=== PATIENT | male | born 1940 | race Caucasian/White ===

== ENCOUNTER 2016-08-19 18:51 | Inpatient (IN) | payer MEDICARE, OTHER ==
--- NOTE | ~2016-08-19 | CN ---
Consultation Report [facility] [address] [place]. [address] NAME: PETER MENDOZA : 38 STATUS : ADM IN PAT#: [id number] AGE: 76 ADM/REG DATE : 08/19/16 MR#: [id number] REPORT SERV DATE: 08/20/16 DICTATED BY: ION LYN DATE: 08/20/16 REPORT STATUS : Draft TRANSCRIBED BY: MODEdith DATE: 08/20/16 CARDIOLOGY CONSULTATION DATE OF CONSULTATION: INDICATION: Acute on chronic heart failure exacerbation, chest discomfort, fatigue. HISTORY OF PRESENT ILLNESS: The patient is a 76-year-old white male, well known to me, whom I had seen two weeks ago. At that time, he was seeing gradual improvement with almost complete elimination of his lower extremity edema. He had been walking more and was able to go to grandchild's wedding. His OptiVol levels were normal on a prior interrogation. His states he has had progressive decline in energy. He has noted some chest discomfort, which he feels like a tightness. He also has had difficulty swallowing his food. The also notes a softening of his voice as he talks for any length of time, raising the possibility of some type of process involving the thoracic neuro musculature. CURRENT HOME MEDICATIONS: Apixaban 2.5 b.i.d., carvedilol 12.5 b.i.d., cholecalciferol 1000 per day, duloxetine 30 a day, ezetimibe 10 per day, gabapentin 200 b.i.d., hydralazine 25 b.i.d., insulin glargine as directed, metolazone 5 twice a week, mexiletine 150 q.8, nystatin powder b.i.d., potassium 10 daily, pravastatin 40 at h.s., probenecid 500 b.i.d., ranolazine 500 b.i.d., sotalol 120 in the morning and 60 in the evening, tamsulosin 0.4 per day, torsemide 40 b.i.d., and tramadol p.r.n. ALLERGIES OR INTOLERANCES: Lisinopril, amiodarone, valsartan, levofloxacin, and Entresto. 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 Negative for alcohol or tobacco use. FAMILY HISTORY: Negative for coronary artery disease at young age. 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 Robledo's arteriogram. His last echo on 11/05/2015 showed an EF of 25%. He has dyslipidemia and chronic lower extremity edema. He has a [employer]-D system in place. History of diabetes mellitus and chronic kidney disease stage 3. He has had recurrent GI bleeds, sleep apnea, and some dyspnea multifactorial. His device interrogation shows recent trending upward of his OptiVol, although not yet at a level of significance. He has had occasional short episodes of nonsustained ventricular tachycardia, although on 08/10 he had an event lasting 1 minute and 15 seconds, occurring at 1753 hours. PHYSICAL EXAMINATION: GENERAL: A 76-year-old white male, appears moderately frail. VITAL SIGNS: Blood pressure 116/67, pulse 73 and regular, respirations 20. Consultation Report [address] [place]. [address] NAME: PETER MENDOZA : 38 STATUS : ADM IN [facility]#: [id number] AGE: 76 ADM/REG DATE : 08/19/16 MR#: [id number] REPORT SERV DATE: 08/20/16 DICTATED BY: ION LYN DATE: 08/20/16 REPORT STATUS : Draft TRANSCRIBED BY: LOUIE DATE: 08/20/16 SKIN: No xanthelasmas. HEENT: He is normocephalic. There is no pallor. NECK: JVD is not elevated. CHEST: No crackles. Good AP movement. CARDIAC: There is an S4. There is no S3. ABDOMEN: Soft. EXTREMITIES: With trace edema. NEUROLOGIC: No focal deficits. MUSCULOSKELETAL: No kyphosis. LABORATORY DATA: BUN 85, creatinine 2.04, potassium 3.3. Hemoglobin 11.7. BNP 1252. ECG shows a paced AV rhythm. IMPRESSION: Symptoms partly due to exacerbation of systolic heart failure, although this does not account for the degree of symptomatology. His OptiVol levels while trending upward are not nearly what I was expecting them to be based on symptoms. He has had an increase in his BUN and creatinine, which may result in decreased B natriuretic peptide clearance, although the levels today are not out of line with that, which he has had in the past. Dr. Robledo will evaluate him for his underlying chest discomfort. He did have a speech pathology study, which suggested a GI consult. Echocardiogram is pending. There also was a recommendation for possible Neurology consult. At this point, I am not going to change his ICD settings. He is on appropriate therapy, otherwise. We will decrease his sotalol due to the decline in baseline renal function. DW/MODL Ion Lyn M.D. / [id number] CC: MD Socorro Coombs M.D. [facility] [place]
--- NOTE | ~2016-08-19 | CN ---
Consultation Report [facility] [address] [place]. [address] NAME: PETER MENDOZA : 38 STATUS : ADM IN PAT#: [id number] AGE: 76 ADM/REG DATE : 08/19/16 MR#: [id number] REPORT SERV DATE: 08/22/16 DICTATED BY: MATA VILLAFANA DATE: 08/22/16 REPORT STATUS : Draft TRANSCRIBED BY: MODL DATE: 08/22/16 CONSULTATION DATE OF CONSULTATION: HISTORY OF PRESENT ILLNESS: Peter Mendoza is a 76-year-old gentleman who has a history of coronary artery disease, congestive heart failure, AICD, and also type 2 diabetes. He is admitted with chest pain and shortness of breath. He has had a month or two of dysphagia. It sticks in his upper chest and sometimes goes down. He sometimes regurgitates it back. He is on Eliquis. His states he has had a lot of belching. MEDICATIONS: His medications at home and here include Eliquis, Coreg, Cymbalta, potassium tablets, and pravastatin. PHYSICAL EXAMINATION: VITAL SIGNS: Blood pressure 105/42. GENERAL: Mildly dyspneic, appears debilitated. NECK: Has a large neck. ABDOMEN: Soft, nontender. LABORATORY DATA: Hemoglobin 11.7. IMPRESSION: Dysphagia. Certainly concerning for esophageal stricture. Apparently, Speech Therapy did not see any oropharyngeal problems. Could consider esophageal dilatation, but certainly at increased risk. Also on Eliquis. PLAN: 1. I agree with Protonix. 2. We will do esophagram and tablet looking for any high-grade stricture. 3. Would of course need to hold the anticoagulation and need cardiac clearance before we could do any endoscopic evaluation and treatment. MG/MODEdith Mata Villafana M.D. / [id number] CC: Gilbert Chandra M.D.
--- NOTE | ~2016-08-19 | CN ---
Consultation Report [facility] [address] [place]. [address] NAME: PETER MENDOZA : 38 STATUS : ADM IN [facility]#: [id number] AGE: 76 ADM/REG DATE : 08/19/16 MR#: [id number] REPORT SERV DATE: 08/20/16 DICTATED BY: KANG ROBLEDO DATE: 08/20/16 REPORT STATUS : Draft TRANSCRIBED BY: LOUIE DATE: 08/20/16 CARDIOLOGY CONSULTATION DATE OF CONSULTATION: HISTORY OF PRESENT ILLNESS: The patient is a 76-year-old white male, who is status post remote bypass surgery and subsequent stenting. The patient presented to the hospital with some oppressive substernal chest discomfort of about 2 hours duration. He has been having progressive shortness of breath over the past few weeks. Cardiac enzymes are negative and EKG shows a paced rhythm. PAST MEDICAL HISTORY: Remarkable for coronary artery disease, ablation, hypertension, diabetes, hyperlipidemia, and paroxysmal atrial fibrillation. SOCIAL HISTORY: The patient does not smoke. FAMILY HISTORY: Positive for coronary artery disease. REVIEW OF SYSTEMS: The patient denies cough, wheeze, sputum production, vomiting, diarrhea, or dysuria. PHYSICAL EXAMINATION: VITAL SIGNS: Blood pressure is 116/67, heart rate is 63 and regular, respirations 16 and nonlabored. HEENT: Unremarkable. NECK: Shows no jugular venous distention with good carotid upstroke. CHEST: Remarkable for basilar rales. CARDIOVASCULAR: The PMI is lateral to the mid clavicular line. S1 is normal, S2 is narrowly split and S3 is present. ABDOMEN: Soft, nontender with normal bowel sounds. EXTREMITIES: Show no cyanosis, clubbing, or edema. SKIN: Warm and dry with no pallor or icterus. NEURO/PSYCH: The patient is oriented x3 with appropriate affect. LABORATORY DATA: BUN is 90, creatinine is 1.92. Potassium 3.1 (being replaced). Troponin is 0.04. BNP is 1252. IMPRESSION: 1. Acute on chronic systolic congestive heart failure. 2. History of coronary artery disease with previous bypass surgery and subsequent stenting. 3. Hypertension. 4. Hyperlipidemia. 5. Gbo-oidzysi-cvmbwpjwx diabetes. Consultation Report [facility] [address] [place]. [address] NAME: PETER MENDOZA : 38 STATUS : ADM IN PAT#: [id number] AGE: 76 ADM/REG DATE : 08/19/16 MR#: [id number] REPORT SERV DATE: 08/20/16 DICTATED BY: KANG ROBLEDO DATE: 08/20/16 REPORT STATUS : Draft TRANSCRIBED BY: LOUIE DATE: 08/20/16 PLAN: 1. Continue empiric diuretic therapy for congestive heart failure. 2. Check echocardiogram to re-evaluate LV dysfunction. 3. We would be hesitant to take this patient with chronic renal disease back to the cardiac catheterization laboratory. Thank you very much for this consultation. JEWELS/LOUIE Kang Robledo M.D., F.A.C.C. / [id number] CC: MD Socorro Coombs M.D.
--- NOTE | ~2016-08-19 | DS ---
Discharge Summary [facility] [address] [place]. [address] NAME: PETER MENDOZA : 38 STATUS : DIS IN PAT#: [id number] AGE: 76 ADM/REG DATE : 08/19/16 MR#: [id number] REPORT SERV DATE: 08/25/16 DICTATED BY: DATE: REPORT STATUS : Draft TRANSCRIBED BY: MODL DATE: 08/24/16 ADMISSION DATE: 08/19/2016 DISCHARGE DATE: 08/24/2016 The patient was admitted to the [facility]. ATTENDING DOCTORS: Margarito Rivera M.D. CONSULTANTS: Included Dr. Robledo of Cardiology, Dr. Lyn of Electrophysiology, and Dr. Bear of Gastroenterology. DISCHARGE DIAGNOSES: 1. Acute congestive heart failure exacerbation, systolic. Ejection fraction 25%. 2. Ischemic cardiomyopathy. 3. History of ventricular tachycardia - status post ablations and AICD. 4. History of paroxysmal atrial fibrillation - paced, chronically anticoagulated on Eliquis. 5. History of coronary artery disease - no acute myocardial infarction this admission. 6. Insulin-dependent diabetes mellitus type 2 - controlled. 7. Anemia of chronic kidney disease. 8. Chronic kidney disease stage 3 to 4, baseline creatinine around 2. 9. Dysphagia - possible esophageal stricture. Improved with Protonix. No endoscopy was performed this admission due to unfavorable risk versus benefit profile. 10.Obstructive sleep apnea, utilizing nocturnal CPAP. 11.History of hypertension - with some hypotension here, necessitating medication adjustments by Cardiology. 12.Hyperlipidemia. 13.Depression and anxiety - improved with increased dose of Cymbalta and initiation of BuSpar. 14.Morbid obesity. 15.Generalized weakness and deconditioning, for additional treatment at [facility]. IMAGIN. Portable chest x-ray, 08/19/2016 shows enlarged heart, status post CABG. Pacemaker leads intact. Mild interstitial prominence with small left effusion. Atelectasis at the left lung base. No pneumothorax. Bilateral humeral head prostheses. 2. Barium swallow and esophagram on 08/22/2016 for dysphagia for solids shows moderate esophageal dysmotility with leftward course to the esophagus at the level of the mid chest. A 13-mm barium tablet became lodged at the level temporarily before passing into the distal esophagus. Eventration of the left hemidiaphragm with the fundus of the stomach residing more cephalad and positioned in GE junction. Barium tablet did not pass through the GE junction during the exam because exam was terminated early due to weakness and shortness of breath. No definitive esophageal stricture. 3. Echocardiogram, 08/22/2016 shows severely decreased left ventricular systolic function with estimated ejection fraction 20% to 25%, stable from prior. Dilated left ventricle with global hypocontractility. Severe diastolic dysfunction with restrictive filling Discharge Summary [facility] [id number] [place]. [address] NAME: PETER MENDOZA : 38 STATUS : DIS IN PAT#: [id number] AGE: 76 ADM/REG DATE : 08/19/16 MR#: [id number] REPORT SERV DATE: 08/25/16 DICTATED BY: DATE: REPORT STATUS : Draft TRANSCRIBED BY: MODEdith DATE: 08/24/16 noted. Normal right ventricular size with mildly decreased systolic function. Device lead in the RV. Mild pulmonary hypertension. Yzvn-kv-xjlmqvri mitral regurgitation and mild tricuspid regurgitation. PERTINENT LABS: Sodium values ranging from 132 to 138, 133 at the time of discharge. BUN values ranging from 85 to 95. Creatinine ranging from 1.75 to 2.2, with prior known baseline between 1.8 and 2.0. Liver enzymes were normal. Troponin times multiple were normal. BNP 1252. White blood cell count was normal. Hemoglobin values ranging from 11.7 to 12. Platelets were normal. INR was normal on Eliquis. BRIEF HISTORY: For full details, please see the previously dictated history of present illness by Dr. Olegario Del Real. This is a 76-year-old white male with history of coronary artery disease, prior CABG, congestive heart failure with known ejection fraction 20% to 25%, paroxysmal atrial fibrillation, history of ventricular tachycardia with a pacemaker AICD, chronic kidney disease stage 3 to 4, and diabetes. He presented to the emergency department with chief complaints of chest tightness and shortness of breath. Symptoms were worse with breathing and activity, although his overall baseline activity level had been quite minimal since ablation in March. The patient had declined rehab at that point and was attempting to do physical rehabilitation on his own at home, although becoming progressively debilitated and frustrated by his limitations. The patient also endorsed a sense of palpitations and potential AICD firing. He was admitted to the Hospitalist Service after emergency department evaluation revealed acute congestive heart failure exacerbation. HOSPITAL COURSE: The patient was admitted to [address] [place] [address] on continuous cardiac telemetry. He was started on IV diuretics. Cardiology and Electrophysiology consultations were obtained. There was no evidence of AICD dysfunction nor evidence of acute myocardial infarction. The patient's shortness of breath improved as he was diuresed, and his kidney functioning remained stable. He underwent a repeat echocardiogram with results as above, showing no change from prior echocardiograms. New complaints this admission included dysphagia and dysphonia. Dr. Mata Bear was consulted and recommended the patient undergo an upper GI series with barium esophagram and barium tablet. Results as dictated above demonstrating esophageal dysmotility and possible stricture, although no definite stricture. In further discussion with the patient and family, decision was made to initiate him on proton pump inhibitor therapy, and to see how this impacted his symptoms. He improved with this. He was felt to be high risk for upper endoscopy, and with improvement with conservative measures, was not felt to require any invasive procedures this admission. He will continue on a proton pump inhibitor and follow up with Dr. Bear as an outpatient. He was able to eat a diet without any difficulties here and taking all of his pills without difficulty. He did exhibit some dysphonia during the admission, but this improved as he was diuresed, and as his strength improved in response to physical therapy. The patient also had panic attacks during the hospitalization and in further discussion, he has been feeling quite depressed and anxious since March. He attributes this potentially to mexiletine, which he was placed on for ventricular arrhythmias. This was discussed with Dr. Lyn and unfortunately, there are no other medication alternatives. The patient also Discharge Summary [address] [address] NAME: PETER MENDOZA : 38 STATUS : DIS IN PAT#: [id number] AGE: 76 ADM/REG DATE : 08/19/16 MR#: [id number] REPORT SERV DATE: 08/25/16 DICTATED BY: DATE: REPORT STATUS : Draft TRANSCRIBED BY: MODEdith DATE: 08/24/16 expressed anxiety related to his general medical condition and recent decline. He was placed on BuSpar with improvement in his symptoms, and his Cymbalta has been temporarily increased to help with depressive symptoms as well. The patient remained very weak, and was amenable to going to [facility] for additional physical therapy. He is being transferred to their facility today. DISCHARGE DISPOSITION: The patient is being transferred to [facility] for additional physical rehabilitation. DISCHARGE DIET: Regarding diet, should adhere to an 1800 kilocalorie ADA, 1500 mL fluid restricted diet at discharge. DISCHARGE ACTIVITY: He has no specific activity restrictions. He has multiple followup appointments pending including with Dr. Robledo in four to six weeks, Dr. Carl Lyn in three to five weeks, Dr. Bear in four to six weeks, and with his primary care provider Dr. Socorro Rees within one to two weeks after discharge from rehab. If his dysphonia persists, he should also be referred to an Ear, Nose, and Throat doctor. DISCHARGE MEDICATIONS: Include: 1. Eliquis 2.5 mg p.o. twice a day. 2. BuSpar 7.5 mg p.o. twice a day. 3. Carvedilol 12.5 mg p.o. twice a day - hold if systolic blood pressure less than or equal to 100 or heart rate less than or equal to 60. 4. Cymbalta 60 mg p.o. q.h.s. 5. Zetia 10 mg p.o. daily. 6. Gabapentin 100 mg p.o. twice a day. 7. NovoLog sliding scale level 1 subcu q.a.c. and q.h.s. 8. Mexiletine 150 mg p.o. every eight hours. 9. Nystatin applied twice a day as needed. 10.Protonix 40 mg p.o. q.a.c. breakfast and supper. 11.Pravastatin 40 mg p.o. q.h.s. 12.Probenecid 500 mg p.o. twice a day. 13.Ranexa 500 mg p.o. twice a day. 14.Sotalol 80 mg p.o. twice a day. 15.Flomax 0.4 mg p.o. q.h.s. 16.Torsemide 40 mg p.o. q. Saturday, Saturday, Saturday and 20 mg p.o. q. Saturday, Saturday, , and Saturday. 17.Tylenol 650 mg every four hours as needed. 18.Colace 100 mg p.o. twice a day as needed. 19.Melatonin 3 mg p.o. q.h.s. p.r.n. 20.Sublingual nitroglycerin 0.4 mg as needed. 21.Ultracet 37.5/325 mg one tablet p.o. twice a day as needed for pain. 22.Senokot two tabs p.o. q.h.s. p.r.n. 23.Albuterol 3 mL inhaled every four hours while awake as needed for shortness of breath. 24.Vitamin D 1000 units p.o. daily. 25.Potassium chloride 10 mEq p.o. daily. Discharge Summary [facility] [address] [place]. [address] NAME: PETER MENDOZA : 38 STATUS : DIS IN PAT#: [id number] AGE: 76 ADM/REG DATE : 08/19/16 MR#: [id number] REPORT SERV DATE: 08/25/16 DICTATED BY: DATE: REPORT STATUS : Draft TRANSCRIBED BY: MODL DATE: 08/24/16 26.Levemir 12 units subcu b.i.d. Forty minutes was spent in completion of the discharge. CRISELDA/LOUIE Chuck Pimentel M.D. / [id number] CC: Gilbert Chandra M.D. [facility] Kang Robledo M.D., F.A.C.C. Mata Bear M.D. Carl Lyn M.D.
--- NOTE | ~2016-08-19 | HP ---
History And Physical [address] [facility] [place]. [address] NAME: PETER MENDOZA : 38 STATUS : ADM IN [facility]#: [id number] AGE: 76 ADM/REG DATE : 08/19/16 MR#: [id number] REPORT SERV DATE: 08/20/16 DICTATED BY: PIPO DONATO DATE: 08/20/16 REPORT STATUS : Draft TRANSCRIBED BY: MODEdith DATE: 08/20/16 DATE OF ADMISSION: 08/19/2016 CHIEF COMPLAINT: Chest pain, mild shortness of breath. HISTORY OF PRESENT ILLNESS: The patient is a 76-year-old male with history of coronary artery disease, congestive heart failure, EF 20 to 25%, AICD and ventricular tachycardia history, additionally CKD and type 2 diabetes, who presents after having chest pain that occurred for the last several days. Pain is in the center of chest, intermittent, moderate severity, pressure like with tightness, nonradiating, associated with shortness of breath, weakness. No diaphoresis, nausea, vomiting, fever, chills, or diarrhea. Has symptoms worse with breathing and activity, although his overall baseline activity is quite minimal, is relieved by rest, symptoms are still currently present. Additionally, he has been feeling irregularities with his rhythm, reports that is the feeling he has when he has his AICD firing, although he does not feel like he has had this firing. He also feels a type of dysphagia when eating food for the last few weeks and is unclear why this is happening. The patient reports that when he has low potassium, his AICD tends to fire, and he is also concerned about this. REVIEW OF SYSTEMS: General: Noted for weakness, but no fever. EYES: No eye pain or visual changes. ENT: No sore throat or congestion but does have dysphagia. NEURO: No headache or confusion. SKIN: No new rashes or bruising. RESPIRATORY: Does have shortness of breath. No cough but does have dyspnea on exertion. CV: Positive chest pain and irregular palpitations. GI: No nausea or vomiting. : No dysuria or hematuria. MUSCULOSKELETAL: Myalgias and arthralgias at baseline. ENDO: Increased fatigue. No polyuria. HEME: No bleeding or bruising. IMMUNOLOGIC: No rhinorrhea. PSYCH: No anxiety or confusion. PAST MEDICAL HISTORY: Acute on chronic systolic heart failure due to ischemic cardiomyopathy with EF 20%; CKD 3; IRIS, on BiPAP; CPAP at home; diabetes type 2; hypertension; coronary artery disease; hyperlipidemia; obesity. PAST SURGICAL HISTORY: He has had AICD placement, cataract, bilateral total knees and shoulder. SOCIAL HISTORY: No smoking, alcohol, or illicits. Accompanied by family at bedside. FAMILY HISTORY: Coronary artery disease and diabetes. History And Physical [address] [address] NAME: PETER MENDOZA : 38 STATUS : ADM IN PAT#: [id number] AGE: 76 ADM/REG DATE : 08/19/16 MR#: [id number] REPORT SERV DATE: 08/20/16 DICTATED BY: PIPO DONATO DATE: 08/20/16 REPORT STATUS : Draft TRANSCRIBED BY: LOUIE DATE: 08/20/16 ALLERGIES: LISINOPRIL, AMIODARONE, VALSARTAN, LEVAQUIN, AND ENTRESTO. HOME MEDICATIONS: Eliquis, Coreg, vitamin D, Cymbalta, Zetia, Neurontin, hydralazine, Lantus, Zaroxolyn, Mexitil, nystatin, Klor-Con, pravastatin, probenecid, Ranexa, sotalol, Flomax, Demadex, Ultracet. PHYSICAL EXAMINATION: VITAL SIGNS: The patient's blood pressure 105/42, temperature 98.5, pulse 84, respirations 14, O2 sats 96%. GENERAL: No acute distress at rest, elderly obese, appears debilitated. EYES: No scleral icterus. ENT: Mild JVD. Large neck, although does have dry lips, moist mucous membranes. CV: Regular rate. No rubs initially, but on telemetry does have polymorphic changes on telemetry. RESPIRATORY: Clear upper lung john, but decreased rales on bilateral lung john. GI: Central obesity. Nondistended. Bowel sounds positive. : Deferred. MUSCULOSKELETAL: Moves all extremities but slightly weak. SKIN: Warm and dry. LYMPH: Does have central edema, only minimal trace lower edema. NEURO: Alert and oriented. Although, generalized weakness. Symmetrical hand strength. PSYCH: Appropriate mood and affect. LABORATORY DATA: BNP 1252.4. Sodium 134, potassium 3.1 chloride 94, bicarb 36, BUN and creatinine 90 and 1.92, glucose 120, magnesium 2.6. Troponin 0.04. Calcium 9.1. WBC 8.2, H and H 11.7 and 37.2, MCV 90.3, platelets 230. INR 1.3. Of note, the patient's prior creatinine has been 2.25, 2.5. BNP recently was 1300, 1200; 2000 in April. ASSESSMENT AND PLAN: 1. Acute CHF exacerbation. 2. Obstructive sleep apnea. 3. Hypokalemia. 4. Hypertension. 5. CKD 3. 6. Ventricular tachycardia history. 7. Dysphagia. PLAN: 1. Acute CHF exacerbation, increased volume in lungs. Chest x-ray, overall BNP slightly improved, we will initiate heart failure order set. The patient has been trying to comply with 100 to 1500 mL daily fluid and has been less active recently, although he is still participating with physical therapy, may also be a component of dysphagia along with arrhythmia causing volume overload. 2. IRIS, CPAP, BiPAP. History And Physical [address] [address] NAME: PETER MENDOZA : 38 STATUS : ADM IN PAT#: [id number] AGE: 76 ADM/REG DATE : 08/19/16 MR#: [id number] REPORT SERV DATE: 08/20/16 DICTATED BY: PIPO DONATO DATE: 08/20/16 REPORT STATUS : Draft TRANSCRIBED BY: LOUIE DATE: 08/20/16 3. Hypokalemia, replaced per protocol. 4. Hypertension, monitor. 5. Chronic kidney disease stage 3, monitor, sees Dr. Best outpatient. We will consult if has increased in CKD. 6. Ventricular tachycardia history, optimize electrolytes, particularly potassium, interrogate pacer. We will ask Dr. Lyn to evaluate as the patient has had polymorphic changes on telemetry. We will try to catch these changes on EKG. He is on multiple medications. Family also requesting Dr. Lyn assistance and Dr. Robledo assistance. 7. Dysphagia, ST evaluation, seen Dr. Bear in the past. We will also consult Dr. Bear as the patient has had episodes of dysphagia and regurgitation of food. Guarded overall prognosis secondary to multiple comorbidities. I anticipate greater than two midnight inpatient stay. DDN/MODL Pipo Donato MD / [id number] CC: Gilbert Garrison M.D.
[2016-08-19 17:17] LABS: BASOPHILS 0.1 %; BASOPHILS ABSOLUTE 0.01 10/3/uL (0.0-0.16); EOSINOPHILS 0.7 %; EOSINOPHILS ABSOLUTE 0.06 10/3/uL (0.0-0.53); HEMATOCRIT 37.2 % (40.0-51.0); HEMOGLOBIN 11.7 g/dL (13.6-17.8); IMMATURE GRANULOCYTES 0.4 %; IMMATURE GRANULOCYTES ABSOLUTE 0.03 10/3/uL (0.0-0.11); LYMPHOCYTES 9.9 %; LYMPHOCYTES ABSOLUTE 0.81 10/3/uL (0.67-4.30); MEAN CORPUS HGB CONC 31.5 g/dL (32.0-36.0); MEAN PLATELET VOLUME 10.1 fL (9.2-13.0); MONOCYTES 13.9 %; MONOCYTES ABSOLUTE 1.14 10/3/uL (0.21-1.20); NEUTROPHILS ABSOLUTE 6.14 10/3/uL (2.02-8.40); PLATELET COUNT 230 10/3/uL (150-400); RBC DISTRIBUTION WIDTH 15.7 % (12.0-16.0); RED CELL COUNT 4.12 10/6/uL (4.7-6.1); WHITE BLOOD CELLS 8.2 10/3/uL (4.5-10.5)
[2016-08-19 17:19] LABS: MANUAL DIFF NO %; MEAN CORPUSCULAR HEMOGLOB 28.4 pg (26.0-34.0); MEAN CORPUSCULAR VOLUME 90.3 fL (80-100)
[2016-08-19 17:27] LABS: INTERNATIONAL NORMAL RATI 1.3 UNITS (-); PROTIME (NOT ORD) 16.4 SEC (12.0-14.5)
[2016-08-19 17:28] LABS: PARTIAL THROMBO TIME 37.7 SEC (22.5-37.2)
[2016-08-19 17:40] LABS: CALCIUM, SERUM 9.1 MG/DL (8.5-10.4); CHEST PAIN PROFILE TAT 0 Hrs 27 Mins; CHLORIDE, SERUM 94 MMOL/L (96-112); CREATININE 1.92 MG/DL (0.70-1.30); GFR AFRICAN AMERICAN 38 ML/MIN (>=60); GFR NON AFRICAN AMERICAN 33 ML/MIN (>=60); GLUCOSE, SERUM 120 MG/DL (60-99); POTASSIUM, SERUM 3.1 MMOL/L (3.5-5.3); SODIUM, SERUM 134 MMOL/L (135-148); TROPONIN I 0.04 NG/ML (<0.05)
[2016-08-19 17:41] LABS: BUN (BLOOD UREA NITROGEN) 90 MG/DL (6-23); CO2 (CARBON DIOXIDE) 36 MMOL/L (24-34)
[~2016-08-19 18:51] MED LIST: ACET500CAP PO; AMARYL2 PO; AMARYL4 PO; AMITIZA24 PO; AMOXIL875 MG PO; APRES25 PO; ASAB PO; ASABAYER PO; BENEMID500 PO; BETAP120 PO; BETAPACE AF80 MG PO; BETAPACE80 PO; BIST PO; BYETTA10 SC; C2 PO; C25 PO; CORDARONE PO; COREG12 PO; COREG25 PO; COREG3 PO; CYMBALTA30 PO; DEMA20 PO; EFFEXXR75 PO; ELDERTONIC PO; ELIQUIS 2.5 MG2.5 MG PO; ELIQUIS 5 MG TAB5 MG PO; FERROCITE PLUS PO; FISH OIL PO; FLOMAX4 PO; HEMOCYTET PO; IRON325 MG PO; K-TABS10 MEQ PO; KDUR20 PO; KLOR-CON M2020 MEQ PO; L40 PO; L80 PO; LAN25 PO; LANTUS PO; LANTUS SC; LEVAQUIN750 MG PO; LOP25 PO; LOP50 PO; LOPID6 PO; LORTAB 5 PO; MAGOX4 PO; MEXITIL 150 MG150 MG PO; MUCINEX600 MG PO; NEUR100 PO; NORCO1 TA1 PO; PLAVIX PO; PRAVACHOL40 MG PO; PRIN2.5 PO; PRIN5 PO; RAN500 PO; SACU1TAB PO; SPIRO25 PO; SUPER B COMP PO; TOPXL50 PO; TRENTAL400 PO; ULTRACET PO; ULTRAM50 PO; VICODINTAB PO; VISKEN10 PO; VISKEN5 PO; VIT B COMPLEX PO; VITAMIN B PO; VITAMIN D OTC PO; VITAMIN D1000 UNI1 PO; VITAMIN D31000 UNIT PO; ZAROX2.5B PO; ZETIA PO; ZITH250 PO; ZOCOR40 PO; ZOSYN375 IV; [UNRECOGNIZED DRUG - OTHER] TOP; [UNRECOGNIZED DRUG - REMARK] TOP
[2016-08-19] MEDS ORDERED: VITAMIN D1000 UNI1 PO (19:02)
[2016-08-19] MEDS ORDERED: MEXITIL 150 MG150 MG PO (19:02)
[2016-08-19] MEDS ORDERED: ULTRACET PO (19:02)
[2016-08-19] MEDS ORDERED: BETAP120 PO ×2 (19:03)
[2016-08-19] MEDS ORDERED: BENEMID500 PO (19:03)
[2016-08-19] MEDS ORDERED: FLOMAX4 PO (19:04)
[2016-08-19] MEDS ORDERED: COREG12 PO (19:04)
[2016-08-19] MEDS ORDERED: LANTUS SC (19:04)
[2016-08-19] MEDS ORDERED: PRAVACHOL40 MG PO (19:04)
[2016-08-19] MEDS ORDERED: NEUR100 PO (19:05)
[2016-08-19] MEDS ORDERED: RAN500 PO (19:05)
[2016-08-19] MEDS ORDERED: CYMBALTA30 PO (19:06)
[2016-08-19] MEDS ORDERED: APRES25 PO (19:07)
[2016-08-19] MEDS ORDERED: ZETIA PO (19:07)
[2016-08-19] MEDS ORDERED: DEMA20 PO (19:07)
[2016-08-19] MEDS ORDERED: ELIQUIS 2.5 MG2.5 MG PO (19:07)
[2016-08-19] MEDS ORDERED: Z5 PO (19:08)
[2016-08-19] MEDS ORDERED: NYSTATPOW TOP (19:08)
[2016-08-19] MEDS ORDERED: KLOR-CON 1010 MEQ PO (19:08)
[2016-08-20 07:13] LABS: BUN (BLOOD UREA NITROGEN) 85 MG/DL (6-23); CALCIUM, SERUM 9.2 MG/DL (8.5-10.4); CHLORIDE, SERUM 97 MMOL/L (96-112); CO2 (CARBON DIOXIDE) 28 MMOL/L (24-34); CREATININE 2.04 MG/DL (0.70-1.30); GFR AFRICAN AMERICAN 35 ML/MIN (>=60); GFR NON AFRICAN AMERICAN 30 ML/MIN (>=60); GLUCOSE, SERUM 168 MG/DL (60-99); POTASSIUM, SERUM 3.3 MMOL/L (3.5-5.3); SODIUM, SERUM 135 MMOL/L (135-148)
[2016-08-21 04:31] LABS: BASOPHILS 0.1 %; BASOPHILS ABSOLUTE 0.01 10/3/uL (0.0-0.16); EOSINOPHILS 1.4 %; EOSINOPHILS ABSOLUTE 0.11 10/3/uL (0.0-0.53); HEMOGLOBIN 11.8 g/dL (13.6-17.8); IMMATURE GRANULOCYTES 0.4 %; IMMATURE GRANULOCYTES ABSOLUTE 0.03 10/3/uL (0.0-0.11); LYMPHOCYTES 12.2 %; LYMPHOCYTES ABSOLUTE 0.98 10/3/uL (0.67-4.30); MANUAL DIFF NO %; MEAN CORPUS HGB CONC 31.1 g/dL (32.0-36.0); MEAN CORPUSCULAR HEMOGLOB 28.5 pg (26.0-34.0); MEAN CORPUSCULAR VOLUME 91.8 fL (80-100); MEAN PLATELET VOLUME 10.4 fL (9.2-13.0); MONOCYTES 14.1 %; MONOCYTES ABSOLUTE 1.13 10/3/uL (0.21-1.20); NEUTROPHILS 71.8 %; NEUTROPHILS ABSOLUTE 5.78 10/3/uL (2.02-8.40); PLATELET COUNT 240 10/3/uL (150-400); RBC DISTRIBUTION WIDTH 15.8 % (12.0-16.0); RED CELL COUNT 4.14 10/6/uL (4.7-6.1)
[2016-08-21 04:42] LABS: A/G RATIO 0.6 (0.7-1.9); ALBUMIN 2.8 G/DL (3.5-5.0); BUN (BLOOD UREA NITROGEN) 87 MG/DL (6-23); CALCIUM, SERUM 9.1 MG/DL (8.5-10.4); CHLORIDE, SERUM 95 MMOL/L (96-112); GFR AFRICAN AMERICAN 32 ML/MIN (>=60); GFR NON AFRICAN AMERICAN 28 ML/MIN (>=60); GLOBULIN 4.7 G/DL (2.5-4.1); POTASSIUM, SERUM 3.6 MMOL/L (3.5-5.3); SGOT(AST) 15 U/L (5-40); SGPT(ALT) 19 U/L (5-65); SODIUM, SERUM 137 MMOL/L (135-148); TOTAL BILIRUBIN 0.7 MG/DL (0-1.2); TOTAL PROTEIN 7.5 G/DL (6.0-8.5)
[2016-08-21 04:43] LABS: ALKALINE PHOSPHATASE 124 U/L (45-117); CO2 (CARBON DIOXIDE) 33 MMOL/L (24-34); GLUCOSE, SERUM 131 MG/DL (60-99)
[2016-08-22 05:40] LABS: BUN (BLOOD UREA NITROGEN) 90 MG/DL (6-23); CALCIUM, SERUM 9.3 MG/DL (8.5-10.4); CHLORIDE, SERUM 95 MMOL/L (96-112); CO2 (CARBON DIOXIDE) 29 MMOL/L (24-34); CREATININE 1.99 MG/DL (0.70-1.30); GFR AFRICAN AMERICAN 36 ML/MIN (>=60); GFR NON AFRICAN AMERICAN 31 ML/MIN (>=60); GLUCOSE, SERUM 149 MG/DL (60-99); POTASSIUM, SERUM 4.1 MMOL/L (3.5-5.3); SODIUM, SERUM 134 MMOL/L (135-148)
[2016-08-22 09:44] LABS: INTERNATIONAL NORMAL RATI 1.4 UNITS (-); PARTIAL THROMBO TIME 36.3 SEC (22.5-37.2); PROTIME (NOT ORD) 16.8 SEC (12.0-14.5)
[2016-08-23 06:47] LABS: BUN (BLOOD UREA NITROGEN) 92 MG/DL (6-23); CALCIUM, SERUM 9.1 MG/DL (8.5-10.4); CHLORIDE, SERUM 94 MMOL/L (96-112); CO2 (CARBON DIOXIDE) 27 MMOL/L (24-34); CREATININE 1.83 MG/DL (0.70-1.30); GFR AFRICAN AMERICAN 40 ML/MIN (>=60); GFR NON AFRICAN AMERICAN 35 ML/MIN (>=60); GLUCOSE, SERUM 159 MG/DL (60-99); POTASSIUM, SERUM 3.8 MMOL/L (3.5-5.3); SODIUM, SERUM 132 MMOL/L (135-148)
[2016-08-24 05:45] LABS: ALBUMIN 2.4 G/DL (3.5-5.0); CALCIUM, SERUM 8.7 MG/DL (8.5-10.4); CHLORIDE, SERUM 95 MMOL/L (96-112); CO2 (CARBON DIOXIDE) 29 MMOL/L (24-34); CREATININE 1.75 MG/DL (0.70-1.30); GFR AFRICAN AMERICAN 42 ML/MIN (>=60); GFR NON AFRICAN AMERICAN 36 ML/MIN (>=60); GLUCOSE, SERUM 136 MG/DL (60-99); PHOSPHORUS, SERUM 2.9 MG/DL (2.5-4.5); SODIUM, SERUM 133 MMOL/L (135-148)
[2016-08-24 05:48] LABS: BUN (BLOOD UREA NITROGEN) 96 MG/DL (6-23)
[2016-10-11] MEDS ORDERED: APRES25 PO (20:38)
[2016-10-11] MEDS ORDERED: PACERONE400 MG PO (20:39)
[2016-10-11] MEDS ORDERED: DEMA20 PO (20:40)
[2016-10-11] MEDS ORDERED: FERROUS SULF325 M1 PO (20:41)
[2016-10-11] MEDS ORDERED: GENERLAC PO (20:42)
[2016-10-11] MEDS ORDERED: IMDUR30 PO (20:42)
[2016-10-11] MEDS ORDERED: D.O.S.100 MG PO (20:49)
[2017-01-13] MEDS ORDERED: PACERONE400 MG PO (03:26)
[2017-01-13] MEDS ORDERED: IMDUR30 PO (03:27)
[2017-01-13] MEDS ORDERED: MEXITIL 150 MG150 MG PO (03:28)
[2017-01-13] MEDS ORDERED: FLOMAX4 PO (03:29)
[2017-01-13] MEDS ORDERED: BENEMID500 PO (03:29)
[2017-01-13] MEDS ORDERED: COREG12 PO (03:34)
[2017-01-13] MEDS ORDERED: PRAVACHOL40 MG PO (03:34)
[2017-01-13] MEDS ORDERED: ZETIA PO (03:35)
[2017-01-13] MEDS ORDERED: CYMBALTA30 PO (03:35)
[2017-01-13] MEDS ORDERED: ELIQUIS 2.5 MG2.5 MG PO (03:36)
[2017-01-13] MEDS ORDERED: MICRO-K10 MEQ PO (03:37)
[2017-01-13] MEDS ORDERED: NEUR100 PO (03:38)
[2017-01-13] MEDS ORDERED: PROTONIX PO (03:39)
[2017-01-13] MEDS ORDERED: DEMA100 PO (03:40)
[2017-01-13] MEDS ORDERED: ZANTAC150 MG PO (03:43)
[2017-01-13] MEDS ORDERED: Z5 PO (03:43)
[2017-01-13] MEDS ORDERED: ULTRACET PO (03:45)
[2017-01-13] MEDS ORDERED: VITAMIN D1000 UNI1 PO (03:46)
[2017-01-13] MEDS ORDERED: LEVEMIR SC (03:48)
[2017-01-14] MEDS ORDERED: VITAMIN D1000 UNI1 PO (20:48)
[2017-01-14] MEDS ORDERED: PACERONE400 MG PO (20:48)
[2017-01-14] MEDS ORDERED: ELIQUIS 2.5 MG2.5 MG PO (20:48)
[2017-01-14] MEDS ORDERED: COREG12 PO (20:48)
[2017-01-14] MEDS ORDERED: CYMBALTA30 PO (20:49)
[2017-01-14] MEDS ORDERED: AMOXIL500 MG PO (20:49)
[2017-01-14] MEDS ORDERED: NEUR100 PO (20:49)
[2017-01-14] MEDS ORDERED: ZETIA PO (20:49)
[2017-01-14] MEDS ORDERED: APRES25 PO (20:50)
[2017-01-14] MEDS ORDERED: AMITIZA24 PO (20:50)
[2017-01-14] MEDS ORDERED: LEVEMFLXPN SC (20:51)
[2017-01-14] MEDS ORDERED: IMDUR30 PO (20:52)
[2017-01-14] MEDS ORDERED: Z5 PO (20:53)
[2017-01-14] MEDS ORDERED: MEXITIL 150 MG150 MG PO (20:53)
[2017-01-14] MEDS ORDERED: KDUR10 PO (20:54)
[2017-01-14] MEDS ORDERED: PRAVACHOL40 MG PO (20:54)
[2017-01-14] MEDS ORDERED: PROTONIX PO (20:54)
[2017-01-14] MEDS ORDERED: ZANTAC 150 PO (20:55)
[2017-01-14] MEDS ORDERED: BENEMID500 PO (20:55)
[2017-01-14] MEDS ORDERED: NOVOLOG SC (20:55)
[2017-01-14] MEDS ORDERED: FLOMAX4 PO (20:56)
[2017-01-14] MEDS ORDERED: ULTRACET PO (20:56)
[2017-01-14] MEDS ORDERED: DEMA100 PO (20:56)
[2017-01-14] MEDS ORDERED: T PO (20:58)
[2017-01-14] MEDS ORDERED: DSS PO (20:59)
[2017-01-16] MEDS ORDERED: MIRALAX POWDER1 PKT PO (10:28)
[2017-01-16] MEDS ORDERED: SENTAB PO (10:28)
[2017-01-16] MEDS ORDERED: Z5 PO (10:30)
== END 2016-08-24 19:52 | DRG 291 ==
LOC: ER 18:51 → 7NO 20:09
PROVIDERS: Emergency Medicine; Hospitalist; Internal Medicine Gastroenterology; Student in an Organized Health Care Education/Training Program
PROC: 4B02XTZ Measurement of Cardiac Defibrillator, External Approach (ICD-10-PCS; principal; 2016-08-20)
DX: I13.0 Hypertensive heart and chronic kidney disease with heart failure and stage 1 through stage 4 chronic kidney disease, or unspecified chronic kidney disease (principal); I50.23 Acute on chronic systolic (congestive) heart failure; E11.22 Type 2 diabetes mellitus with diabetic chronic kidney disease; Z68.41 Body mass index [BMI] 40.0-44.9, adult; N18.3 Chronic kidney disease, stage 3 (moderate); R13.10 Dysphagia, unspecified; E66.01 Morbid (severe) obesity due to excess calories; G47.33 Obstructive sleep apnea (adult) (pediatric); E87.6 Hypokalemia; Z95.810 Presence of automatic (implantable) cardiac defibrillator; I25.10 Atherosclerotic heart disease of native coronary artery without angina pectoris; Z79.01 Long term (current) use of anticoagulants; Z95.1 Presence of aortocoronary bypass graft; Z95.5 Presence of coronary angioplasty implant and graft; I25.5 Ischemic cardiomyopathy; D63.1 Anemia in chronic kidney disease; F32.9 Major depressive disorder, single episode, unspecified; F41.9 Anxiety disorder, unspecified
CPT/HCPCS: 71010; 74220; 80048; 80053; 80069; 82962; 83735; 83880; 84132; 84484; 85025; 85049; 85610; 85730; 92610-GN; 93005; 93288; 97162-GP; 99291; A9270-GY; C8929; G8978-CL-GP; G8979-CK-GP; G8980-CK-GP; G8996-CJ-GN; G8997-CJ-GN; G8998-CJ-GN; J2405; Q9957

== ENCOUNTER 2016-09-15 05:16 | Inpatient (IN) | payer MEDICARE, OTHER ==
--- NOTE | ~2016-09-15 | HP ---
History And Physical [address] [place]. [address] NAME: PETER MENDOZA : 38 STATUS : ADM Saroj PAT#: [id number] AGE: 76 ADM/REG DATE : 09/15/16 MR#: [id number] REPORT SERV DATE: 09/15/16 DICTATED BY: CONCETTA HIDALGO DATE: 09/15/16 REPORT STATUS : Draft TRANSCRIBED BY: MODL DATE: 09/15/16 DATE OF ADMISSION: 09/15/2016 REASON FOR ADMISSION: Regarding ICD shocks. HISTORY OF PRESENT ILLNESS: Mr. Mendoza is a pleasant 76-year-old gentleman with a longstanding history of coronary disease, status post remote CAB. He has a severe ischemic cardiomyopathy and a history of ventricular tachycardias, he is status post ICD. He sees Dr. Robledo for his cardiology issues, except his arrhythmia and ICD followup has been performed by Dr. Carl Lyn. The patient presented to the hospital after receiving an ICD shock. He did not lose consciousness. He had a similar episode in March of last year. Interrogation of the ICD has shown evidence for both a slower VT in the 150 to 160 beat per minute range that falls into the ICD monitor only zone. This rhythm usually self- terminates. He additionally has a more rapid VT. There was an attempted ATP therapy, which was unsuccessful and the patient received an ICD shock, which was successful and restored sinus rhythm. As mentioned, the patient did not lose consciousness. He is denying any chest pain or chest discomfort. The patient was seen earlier in August with complaints of congestive heart failure symptoms and treated by Dr. Robledo at that time. PAST MEDICAL HISTORY: Notable for: 1. Longstanding history of coronary disease. 2. Status post remote CAB. 3. Ischemic cardiomyopathy. 4. Status post ICD. 5. History of VT, treated with a combination of mexiletine and sotalol. 6. History of GI bleeds. The patient had been taking amiodarone, but was discontinued after GI bleed, in which there was likely an interaction between warfarin and amiodarone. 7. History of atrial fibrillation, for which the patient currently takes Eliquis for CVA prophylaxis. 8. History of diabetes mellitus. CURRENT MEDICATIONS: Include Cymbalta, Zetia, Neurontin, hydralazine, insulin, Zaroxolyn 5 mg daily, Mexitil, Protonix, potassium, apixaban, BuSpar, carvedilol 12.5 mg p.o. b.i.d., pravastatin, Ranexa, sotalol 120 mg p.o. b.i.d., Demadex. FAMILY HISTORY: Noncontributory. SOCIAL HISTORY: Negative for tobacco or alcohol. REVIEW OF SYSTEMS: As noted above. All other systems reviewed and negative. PHYSICAL EXAMINATION: GENERAL: He is comfortable. He is breathing comfortably while lying with a 15-degree incline in the head of his bed position. History And Physical [address] [address] NAME: PETER MENDOZA : 38 STATUS : ADM Saroj PAT#: [id number] AGE: 76 ADM/REG DATE : 09/15/16 MR#: [id number] REPORT SERV DATE: 09/15/16 DICTATED BY: CONCETTA HIDALGO DATE: 09/15/16 REPORT STATUS : Draft TRANSCRIBED BY: LOUIE DATE: 09/15/16 HEENT: No icterus. Good dentition. NECK: Supple. No masses or thyromegaly. LUNGS: Breathing comfortably. No rales or wheezes. COR: Normal S1, S2. No S3 or S4. No murmurs, clicks, rubs. No JVD. ABD: Soft, nondistended, nontender. No hepatosplenomegaly. EXT: No clubbing, cyanosis, or edema. Peripheral pulses 2+/= bilaterally. SKIN: Warm and dry. No visible lesions. MS: Chest wall without deformity. No obvious clavicular fractures. NEURO/PSYCH: Oriented x3. No anxiety or depression. LABORATORY DATA: EKG shows sinus rhythm with biventricular pacing. White count 7.0, hematocrit 38, platelet count 250. Sodium 136, potassium 4.4, creatinine is 2.09. Liver enzymes, calcium, magnesium all within normal limits. His INR is 1.3. IMPRESSION: 1. The patient with a longstanding history of coronary disease and severe cardiomyopathy. He presents with ventricular tachycardia and had ICD therapy in the form of failed ATP, followed by single ICD shock which restored sinus rhythm. He had a similar event in March. He has a severe ischemic cardiomyopathy, likely class III congestive heart failure, although he appears to be fairly euvolemic at this point in time. His electrolytes are within normal limits. In addition to the rapid ventricular tachycardia, he has a slower ventricular tachycardia that is in the 150 beat per minute range, which is monitored only and not treated. It is unclear if this is also symptomatic, but it does self-terminate after some time. He currently is taking sotalol and mexiletine, and it appears that the patient switched from amiodarone to sotalol due to an interaction between amiodarone and warfarin, after which he had supratherapeutic PT/INR values and GI bleeding. The patient is now on Eliquis, which would not have the same issues of interaction with the amiodarone and therefore, I would recommend that we change him from sotalol to amiodarone, which we will start at 400 mg p.o. b.i.d. We will continue Mexitil as well as the carvedilol. We will continue his current management for congestive heart failure including his oral diuretics, which include metolazone and Demadex. In terms of his ICD, we will extend the zone to incorporate the slower VT between 150 and 170 beats per minute, for which he will receive ATP only, but no shocks. We will continue to monitor him for ventricular tachycardia in the fact of the change in his ICD parameters. 2. Diabetes. Continue the patient's use of insulin. Check glucose a.c. and h.s. 3. Congestive heart failure. As mentioned, appears to be stable. Continue his current diuretics. 4. History of coronary disease. Appears to be stable at this point in time. 5. Renal insufficiency. Appears to be stable. We will follow creatinine. GS/MODL Concetta Hidalgo M.D. History And Physical [address] [address] NAME: PETER MENDOZA : 38 STATUS : ADM Saroj PAT#: [id number] AGE: 76 ADM/REG DATE : 09/15/16 MR#: [id number] REPORT SERV DATE: 09/15/16 DICTATED BY: CONCETTA HIDALGO DATE: 09/15/16 REPORT STATUS : Draft TRANSCRIBED BY: LOUIE DATE: 09/15/16 / [id number] CC: Gilbert Díaz M.D.
[2016-09-15 04:26] LABS: BASOPHILS 0.1 %; BASOPHILS ABSOLUTE 0.01 10/3/uL (0.0-0.16); EOSINOPHILS 1.6 %; EOSINOPHILS ABSOLUTE 0.11 10/3/uL (0.0-0.53); HEMOGLOBIN 11.7 g/dL (13.6-17.8); IMMATURE GRANULOCYTES 0.3 %; IMMATURE GRANULOCYTES ABSOLUTE 0.02 10/3/uL (0.0-0.11); LYMPHOCYTES 12.2 %; LYMPHOCYTES ABSOLUTE 0.85 10/3/uL (0.67-4.30); MEAN CORPUSCULAR VOLUME 90.4 fL (80-100); MEAN PLATELET VOLUME 10.3 fL (9.2-13.0); MONOCYTES 10.7 %; MONOCYTES ABSOLUTE 0.75 10/3/uL (0.21-1.20); NEUTROPHILS 75.1 %; NEUTROPHILS ABSOLUTE 5.24 10/3/uL (2.02-8.40); PLATELET COUNT 250 10/3/uL (150-400); RBC DISTRIBUTION WIDTH 16.9 % (12.0-16.0); RED CELL COUNT 4.18 10/6/uL (4.7-6.1)
[2016-09-15 04:28] LABS: HEMATOCRIT 37.8 % (40.0-51.0); MANUAL DIFF NO %
[2016-09-15 04:34] LABS: INTERNATIONAL NORMAL RATI 1.3 UNITS (-); PARTIAL THROMBO TIME 34.4 SEC (22.5-37.2); PROTIME (NOT ORD) 16.2 SEC (12.0-14.5)
[2016-09-15 04:43] LABS: ALBUMIN 2.5 G/DL (3.5-5.0); CALCIUM, SERUM 8.8 MG/DL (8.5-10.4); CHEST PAIN PROFILE TAT 0 Hrs 21 Mins; CHLORIDE, SERUM 98 MMOL/L (96-112); CO2 (CARBON DIOXIDE) 33 MMOL/L (24-34); CREATININE 2.09 MG/DL (0.70-1.30); GFR AFRICAN AMERICAN 34 ML/MIN (>=60); GFR NON AFRICAN AMERICAN 29 ML/MIN (>=60); GLUCOSE, SERUM 135 MG/DL (60-99); SGPT(ALT) 25 U/L (5-65); SODIUM, SERUM 136 MMOL/L (135-148); TOTAL BILIRUBIN 0.6 MG/DL (0-1.2); TOTAL PROTEIN 7.3 G/DL (6.0-8.5); TROPONIN I 0.04 NG/ML (<0.05)
[2016-09-15 04:44] LABS: ALKALINE PHOSPHATASE 154 U/L (45-117); BUN (BLOOD UREA NITROGEN) 66 MG/DL (6-23); DIRECT BILIRUBIN 0.1 MG/DL (0.0-0.4); INDIRECT BILIRUBIN(NOT ORDER) 0.5 MG/DL (0.1-0.9); POTASSIUM, SERUM 4.4 MMOL/L (3.5-5.3)
[2016-09-15 04:45] LABS: SGOT(AST) 41 U/L (5-40)
[~2016-09-15 05:16] MED LIST changes: +KLOR-CON 1010 MEQ PO; +NYSTATPOW TOP; +Z5 PO
[2016-09-15 05:24] LABS: ASCORBIC ACID (UR NOT ORDER) NEG (NEG); BILIRUBIN, URINE NEGATIVE (NEG); ER URINALYSIS TAT 0 Hrs 00 Mins; KETONE, URINE NEGATIVE (NEG); LEUKOCYTE ESTERASE(NOT OR LARGE (NEG); NITRITE (URINE) NEG (NEG); WBC (NOT ORDERED) (RFLEX) 16 (0-5)
[2016-09-15] MEDS ORDERED: MEXITIL 150 MG150 MG PO (06:21)
[2016-09-15] MEDS ORDERED: VITAMIN D1000 UNI1 PO (06:21)
[2016-09-15] MEDS ORDERED: ULTRACET PO ×2 (06:21→06:29)
[2016-09-15] MEDS ORDERED: BETAP120 PO (06:22)
[2016-09-15] MEDS ORDERED: PRAVACHOL40 MG PO (06:23)
[2016-09-15] MEDS ORDERED: [UNRECOGNIZED DRUG - CODE] PO (06:23)
[2016-09-15] MEDS ORDERED: FLOMAX4 PO (06:23)
[2016-09-15] MEDS ORDERED: LANTUS SC (06:24)
[2016-09-15] MEDS ORDERED: COREG12 PO (06:24)
[2016-09-15] MEDS ORDERED: NEUR100 PO (06:25)
[2016-09-15] MEDS ORDERED: CYMBALTA30 PO (06:26)
[2016-09-15] MEDS ORDERED: RAN500 PO (06:26)
[2016-09-15] MEDS ORDERED: APRES25 PO (06:27)
[2016-09-15] MEDS ORDERED: ELIQUIS 2.5 MG2.5 MG PO (06:28)
[2016-09-15] MEDS ORDERED: DEMA20 PO (06:28)
[2016-09-15] MEDS ORDERED: ZETIA PO (06:28)
[2016-09-15] MEDS ORDERED: Z5 PO (06:30)
[2016-09-15] MEDS ORDERED: KLOR-CON M2020 MEQ PO (06:31)
[2016-09-15] MEDS ORDERED: BUSPIRONE7.5 MG PO ×2 (06:33→06:35)
[2016-09-15] MEDS ORDERED: PROTONIX PO (06:33)
[2016-09-15] MEDS ORDERED: BUSPAR5 PO (06:34)
[2016-09-15 18:33] LABS: BUN (BLOOD UREA NITROGEN) 67 MG/DL (6-23); CALCIUM, SERUM 8.7 MG/DL (8.5-10.4); CHLORIDE, SERUM 100 MMOL/L (96-112); CO2 (CARBON DIOXIDE) 31 MMOL/L (24-34); CREATININE 2.03 MG/DL (0.70-1.30); GFR AFRICAN AMERICAN 35 ML/MIN (>=60); GFR NON AFRICAN AMERICAN 30 ML/MIN (>=60); POTASSIUM, SERUM 3.8 MMOL/L (3.5-5.3); SODIUM, SERUM 139 MMOL/L (135-148)
[2016-09-15 18:34] LABS: GLUCOSE, SERUM 197 MG/DL (60-99)
[2016-09-16 05:12] LABS: BASOPHILS 0.7 %; BASOPHILS ABSOLUTE 0.05 10/3/uL (0.0-0.16); EOSINOPHILS 3.3 %; EOSINOPHILS ABSOLUTE 0.22 10/3/uL (0.0-0.53); HEMATOCRIT 35.8 % (40.0-51.0); HEMOGLOBIN 11.1 g/dL (13.6-17.8); IMMATURE GRANULOCYTES ABSOLUTE 0.07 10/3/uL (0.0-0.11); LYMPHOCYTES 20.8 %; MEAN CORPUSCULAR HEMOGLOB 27.7 pg (26.0-34.0); MEAN CORPUSCULAR VOLUME 89.3 fL (80-100); MEAN PLATELET VOLUME 10.3 fL (9.2-13.0); MONOCYTES 17.8 %; NEUTROPHILS 56.4 %; PLATELET COUNT 228 10/3/uL (150-400); RBC DISTRIBUTION WIDTH 16.7 % (12.0-16.0); RED CELL COUNT 4.01 10/6/uL (4.7-6.1); WHITE BLOOD CELLS 6.7 10/3/uL (4.5-10.5)
[2016-09-16 05:14] LABS: MANUAL DIFF NO %
[2016-09-16 05:27] LABS: BUN (BLOOD UREA NITROGEN) 67 MG/DL (6-23); CALCIUM, SERUM 8.6 MG/DL (8.5-10.4); CHLORIDE, SERUM 101 MMOL/L (96-112); CO2 (CARBON DIOXIDE) 30 MMOL/L (24-34); CREATININE 1.92 MG/DL (0.70-1.30); GFR AFRICAN AMERICAN 38 ML/MIN (>=60); GFR NON AFRICAN AMERICAN 33 ML/MIN (>=60); POTASSIUM, SERUM 3.9 MMOL/L (3.5-5.3); SODIUM, SERUM 141 MMOL/L (135-148)
[2016-09-16 05:28] LABS: GLUCOSE, SERUM 78 MG/DL (60-99)
[2016-09-17 05:20] LABS: CALCIUM, SERUM 8.5 MG/DL (8.5-10.4); CHLORIDE, SERUM 99 MMOL/L (96-112); CREATININE 2.02 MG/DL (0.70-1.30); GFR AFRICAN AMERICAN 36 ML/MIN (>=60); GFR NON AFRICAN AMERICAN 31 ML/MIN (>=60); GLUCOSE, SERUM 85 MG/DL (60-99); POTASSIUM, SERUM 3.7 MMOL/L (3.5-5.3); SODIUM, SERUM 140 MMOL/L (135-148)
[2016-09-17 05:26] LABS: BUN (BLOOD UREA NITROGEN) 72 MG/DL (6-23); CO2 (CARBON DIOXIDE) 35 MMOL/L (24-34)
[2016-09-18 06:49] LABS: BUN (BLOOD UREA NITROGEN) 73 MG/DL (6-23); CALCIUM, SERUM 9.1 MG/DL (8.5-10.4); CHLORIDE, SERUM 95 MMOL/L (96-112); CO2 (CARBON DIOXIDE) 35 MMOL/L (24-34); CREATININE 1.97 MG/DL (0.70-1.30); GFR AFRICAN AMERICAN 37 ML/MIN (>=60); GFR NON AFRICAN AMERICAN 32 ML/MIN (>=60); POTASSIUM, SERUM 3.3 MMOL/L (3.5-5.3); SODIUM, SERUM 137 MMOL/L (135-148)
[2016-09-18 06:51] LABS: GLUCOSE, SERUM 129 MG/DL (60-99)
[2016-09-19] MEDS ORDERED: CORDARONE PO (08:10)
[2016-10-11] MEDS ORDERED: APRES25 PO (20:38)
[2016-10-11] MEDS ORDERED: PACERONE400 MG PO (20:39)
[2016-10-11] MEDS ORDERED: DEMA20 PO (20:40)
[2016-10-11] MEDS ORDERED: FERROUS SULF325 M1 PO (20:41)
[2016-10-11] MEDS ORDERED: GENERLAC PO (20:42)
[2016-10-11] MEDS ORDERED: IMDUR30 PO (20:42)
[2016-10-11] MEDS ORDERED: D.O.S.100 MG PO (20:49)
[2017-01-13] MEDS ORDERED: PACERONE400 MG PO (03:26)
[2017-01-13] MEDS ORDERED: IMDUR30 PO (03:27)
[2017-01-13] MEDS ORDERED: MEXITIL 150 MG150 MG PO (03:28)
[2017-01-13] MEDS ORDERED: BENEMID500 PO (03:29)
[2017-01-13] MEDS ORDERED: FLOMAX4 PO (03:29)
[2017-01-13] MEDS ORDERED: COREG12 PO (03:34)
[2017-01-13] MEDS ORDERED: PRAVACHOL40 MG PO (03:34)
[2017-01-13] MEDS ORDERED: CYMBALTA30 PO (03:35)
[2017-01-13] MEDS ORDERED: ZETIA PO (03:35)
[2017-01-13] MEDS ORDERED: ELIQUIS 2.5 MG2.5 MG PO (03:36)
[2017-01-13] MEDS ORDERED: MICRO-K10 MEQ PO (03:37)
[2017-01-13] MEDS ORDERED: NEUR100 PO (03:38)
[2017-01-13] MEDS ORDERED: PROTONIX PO (03:39)
[2017-01-13] MEDS ORDERED: DEMA100 PO (03:40)
[2017-01-13] MEDS ORDERED: ZANTAC150 MG PO (03:43)
[2017-01-13] MEDS ORDERED: Z5 PO (03:43)
[2017-01-13] MEDS ORDERED: ULTRACET PO (03:45)
[2017-01-13] MEDS ORDERED: VITAMIN D1000 UNI1 PO (03:46)
[2017-01-13] MEDS ORDERED: LEVEMIR SC (03:48)
[2017-01-14] MEDS ORDERED: PACERONE400 MG PO (20:48)
[2017-01-14] MEDS ORDERED: COREG12 PO (20:48)
[2017-01-14] MEDS ORDERED: ELIQUIS 2.5 MG2.5 MG PO (20:48)
[2017-01-14] MEDS ORDERED: VITAMIN D1000 UNI1 PO (20:48)
[2017-01-14] MEDS ORDERED: ZETIA PO (20:49)
[2017-01-14] MEDS ORDERED: NEUR100 PO (20:49)
[2017-01-14] MEDS ORDERED: CYMBALTA30 PO (20:49)
[2017-01-14] MEDS ORDERED: AMOXIL500 MG PO (20:49)
[2017-01-14] MEDS ORDERED: APRES25 PO (20:50)
[2017-01-14] MEDS ORDERED: AMITIZA24 PO (20:50)
[2017-01-14] MEDS ORDERED: LEVEMFLXPN SC (20:51)
[2017-01-14] MEDS ORDERED: IMDUR30 PO (20:52)
[2017-01-14] MEDS ORDERED: Z5 PO (20:53)
[2017-01-14] MEDS ORDERED: MEXITIL 150 MG150 MG PO (20:53)
[2017-01-14] MEDS ORDERED: PRAVACHOL40 MG PO (20:54)
[2017-01-14] MEDS ORDERED: KDUR10 PO (20:54)
[2017-01-14] MEDS ORDERED: PROTONIX PO (20:54)
[2017-01-14] MEDS ORDERED: NOVOLOG SC (20:55)
[2017-01-14] MEDS ORDERED: BENEMID500 PO (20:55)
[2017-01-14] MEDS ORDERED: ZANTAC 150 PO (20:55)
[2017-01-14] MEDS ORDERED: ULTRACET PO (20:56)
[2017-01-14] MEDS ORDERED: FLOMAX4 PO (20:56)
[2017-01-14] MEDS ORDERED: DEMA100 PO (20:56)
[2017-01-14] MEDS ORDERED: T PO (20:58)
[2017-01-14] MEDS ORDERED: DSS PO (20:59)
[2017-01-16] MEDS ORDERED: MIRALAX POWDER1 PKT PO (10:28)
[2017-01-16] MEDS ORDERED: SENTAB PO (10:28)
[2017-01-16] MEDS ORDERED: Z5 PO (10:30)
== END 2016-09-19 15:46 | disposition home or self-care (01) | DRG 315 ==
LOC: ER 05:16 → 7NO 06:18
PROVIDERS: Internal Medicine Cardiovascular Disease; Specialist
PROC: 4B02XTZ Measurement of Cardiac Defibrillator, External Approach (ICD-10-PCS; principal; 2016-09-17)
DX: T82.897A Other specified complication of cardiac prosthetic devices, implants and grafts, initial encounter (principal); I47.2 Ventricular tachycardia; E11.22 Type 2 diabetes mellitus with diabetic chronic kidney disease; I50.9 Heart failure, unspecified; I13.0 Hypertensive heart and chronic kidney disease with heart failure and stage 1 through stage 4 chronic kidney disease, or unspecified chronic kidney disease; I25.5 Ischemic cardiomyopathy; E11.9 Type 2 diabetes mellitus without complications; I25.10 Atherosclerotic heart disease of native coronary artery without angina pectoris; Z95.1 Presence of aortocoronary bypass graft; Y83.8 Other surgical procedures as the cause of abnormal reaction of the patient, or of later complication, without mention of misadventure at the time of the procedure; Z79.4 Long term (current) use of insulin; Z79.899 Other long term (current) drug therapy; Z79.01 Long term (current) use of anticoagulants; N18.9 Chronic kidney disease, unspecified
CPT/HCPCS: 71010; 80048; 80076; 81001; 82962; 83735; 83880; 84484; 85025; 85610; 85730; 87077; 87086; 87186; 93005; 99285; A9270-GY

== ENCOUNTER 2016-09-20 13:22 | Emergency (ER) | payer MEDICARE, OTHER ==
[2016-09-20 12:48] LABS: BASOPHILS 0.2 %; BASOPHILS ABSOLUTE 0.01 10/3/uL (0.0-0.16); EOSINOPHILS 0.7 %; EOSINOPHILS ABSOLUTE 0.04 10/3/uL (0.0-0.53); ER CBC TAT 0 Hrs 05 Mins; HEMATOCRIT 37.4 % (40.0-51.0); HEMOGLOBIN 11.4 g/dL (13.6-17.8); IMMATURE GRANULOCYTES 0.2 %; IMMATURE GRANULOCYTES ABSOLUTE 0.01 10/3/uL (0.0-0.11); LYMPHOCYTES 11.5 %; LYMPHOCYTES ABSOLUTE 0.65 10/3/uL (0.67-4.30); MEAN CORPUS HGB CONC 30.5 g/dL (32.0-36.0); MEAN CORPUSCULAR HEMOGLOB 27.5 pg (26.0-34.0); MEAN CORPUSCULAR VOLUME 90.1 fL (80-100); MEAN PLATELET VOLUME 10.1 fL (9.2-13.0); MONOCYTES ABSOLUTE 0.68 10/3/uL (0.21-1.20); NEUTROPHILS 75.4 %; NEUTROPHILS ABSOLUTE 4.28 10/3/uL (2.02-8.40); PLATELET COUNT 220 10/3/uL (150-400); RBC DISTRIBUTION WIDTH 16.8 % (12.0-16.0); RED CELL COUNT 4.15 10/6/uL (4.7-6.1); WHITE BLOOD CELLS 5.7 10/3/uL (4.5-10.5)
[2016-09-20 12:51] LABS: MANUAL DIFF NO %
[2016-09-20 12:55] LABS: INTERNATIONAL NORMAL RATI 1.5 UNITS (-); PARTIAL THROMBO TIME 37.8 SEC (22.5-37.2); PROTIME (NOT ORD) 18.1 SEC (12.0-14.5)
[2016-09-20 13:05] LABS: CALCIUM, SERUM 9.2 MG/DL (8.5-10.4); CHEST PAIN PROFILE TAT 0 Hrs 22 Mins; CHLORIDE, SERUM 97 MMOL/L (96-112); CO2 (CARBON DIOXIDE) 34 MMOL/L (24-34); CREATININE 1.79 MG/DL (0.70-1.30); GFR AFRICAN AMERICAN 41 ML/MIN (>=60); GFR NON AFRICAN AMERICAN 36 ML/MIN (>=60); SODIUM, SERUM 139 MMOL/L (135-148); TROPONIN I 0.04 NG/ML (<0.05)
[2016-09-20 13:06] LABS: BUN (BLOOD UREA NITROGEN) 65 MG/DL (6-23); GLUCOSE, SERUM 203 MG/DL (60-99)
[~2016-09-20 13:22] MED LIST changes: +BUSPAR5 PO; +BUSPIRONE7.5 MG PO; +PROTONIX PO; +[UNRECOGNIZED DRUG - CODE] PO
[2016-10-11] MEDS ORDERED: APRES25 PO (20:38)
[2016-10-11] MEDS ORDERED: PACERONE400 MG PO (20:39)
[2016-10-11] MEDS ORDERED: DEMA20 PO (20:40)
[2016-10-11] MEDS ORDERED: FERROUS SULF325 M1 PO (20:41)
[2016-10-11] MEDS ORDERED: IMDUR30 PO (20:42)
[2016-10-11] MEDS ORDERED: GENERLAC PO (20:42)
[2016-10-11] MEDS ORDERED: D.O.S.100 MG PO (20:49)
[2017-01-13] MEDS ORDERED: PACERONE400 MG PO (03:26)
[2017-01-13] MEDS ORDERED: IMDUR30 PO (03:27)
[2017-01-13] MEDS ORDERED: MEXITIL 150 MG150 MG PO (03:28)
[2017-01-13] MEDS ORDERED: FLOMAX4 PO (03:29)
[2017-01-13] MEDS ORDERED: BENEMID500 PO (03:29)
[2017-01-13] MEDS ORDERED: PRAVACHOL40 MG PO (03:34)
[2017-01-13] MEDS ORDERED: COREG12 PO (03:34)
[2017-01-13] MEDS ORDERED: CYMBALTA30 PO (03:35)
[2017-01-13] MEDS ORDERED: ZETIA PO (03:35)
[2017-01-13] MEDS ORDERED: ELIQUIS 2.5 MG2.5 MG PO (03:36)
[2017-01-13] MEDS ORDERED: MICRO-K10 MEQ PO (03:37)
[2017-01-13] MEDS ORDERED: NEUR100 PO (03:38)
[2017-01-13] MEDS ORDERED: PROTONIX PO (03:39)
[2017-01-13] MEDS ORDERED: DEMA100 PO (03:40)
[2017-01-13] MEDS ORDERED: Z5 PO (03:43)
[2017-01-13] MEDS ORDERED: ZANTAC150 MG PO (03:43)
[2017-01-13] MEDS ORDERED: ULTRACET PO (03:45)
[2017-01-13] MEDS ORDERED: VITAMIN D1000 UNI1 PO (03:46)
[2017-01-13] MEDS ORDERED: LEVEMIR SC (03:48)
[2017-01-14] MEDS ORDERED: ELIQUIS 2.5 MG2.5 MG PO (20:48)
[2017-01-14] MEDS ORDERED: PACERONE400 MG PO (20:48)
[2017-01-14] MEDS ORDERED: VITAMIN D1000 UNI1 PO (20:48)
[2017-01-14] MEDS ORDERED: COREG12 PO (20:48)
[2017-01-14] MEDS ORDERED: NEUR100 PO (20:49)
[2017-01-14] MEDS ORDERED: CYMBALTA30 PO (20:49)
[2017-01-14] MEDS ORDERED: AMOXIL500 MG PO (20:49)
[2017-01-14] MEDS ORDERED: ZETIA PO (20:49)
[2017-01-14] MEDS ORDERED: APRES25 PO (20:50)
[2017-01-14] MEDS ORDERED: AMITIZA24 PO (20:50)
[2017-01-14] MEDS ORDERED: LEVEMFLXPN SC (20:51)
[2017-01-14] MEDS ORDERED: IMDUR30 PO (20:52)
[2017-01-14] MEDS ORDERED: Z5 PO (20:53)
[2017-01-14] MEDS ORDERED: MEXITIL 150 MG150 MG PO (20:53)
[2017-01-14] MEDS ORDERED: PROTONIX PO (20:54)
[2017-01-14] MEDS ORDERED: KDUR10 PO (20:54)
[2017-01-14] MEDS ORDERED: PRAVACHOL40 MG PO (20:54)
[2017-01-14] MEDS ORDERED: ZANTAC 150 PO (20:55)
[2017-01-14] MEDS ORDERED: NOVOLOG SC (20:55)
[2017-01-14] MEDS ORDERED: BENEMID500 PO (20:55)
[2017-01-14] MEDS ORDERED: ULTRACET PO (20:56)
[2017-01-14] MEDS ORDERED: FLOMAX4 PO (20:56)
[2017-01-14] MEDS ORDERED: DEMA100 PO (20:56)
[2017-01-14] MEDS ORDERED: T PO (20:58)
[2017-01-14] MEDS ORDERED: DSS PO (20:59)
[2017-01-16] MEDS ORDERED: MIRALAX POWDER1 PKT PO (10:28)
[2017-01-16] MEDS ORDERED: SENTAB PO (10:28)
[2017-01-16] MEDS ORDERED: Z5 PO (10:30)
== END 2016-09-20 15:40 | disposition home or self-care (01) ==
LOC: ER 13:22
PROVIDERS: Hospitalist
DX: I47.2 Ventricular tachycardia (principal); N18.9 Chronic kidney disease, unspecified; I50.9 Heart failure, unspecified; I25.10 Atherosclerotic heart disease of native coronary artery without angina pectoris; I48.91 Unspecified atrial fibrillation; E11.22 Type 2 diabetes mellitus with diabetic chronic kidney disease; Z88.1 Allergy status to other antibiotic agents; Z88.8 Allergy status to other drugs, medicaments and biological substances; Z79.82 Long term (current) use of aspirin; Z79.4 Long term (current) use of insulin; Z79.899 Other long term (current) drug therapy
CPT/HCPCS: 80048; 83735; 84484; 85025; 85610; 85730; 93005; 99284

== ENCOUNTER 2016-10-03 15:03 | Inpatient (IN) | payer MEDICARE, OTHER ==
--- NOTE | ~2016-10-03 | CN ---
Consultation Report [facility] [address] [place]. [address] NAME: PETER MENDOZA : 38 STATUS : ADM IN PAT#: [id number] AGE: 76 ADM/REG DATE : 10/03/16 MR#: [id number] REPORT SERV DATE: 10/05/16 DICTATED BY: MATA VILLAFANA DATE: 10/05/16 REPORT STATUS : Draft TRANSCRIBED BY: MODEdith DATE: 10/05/16 CONSULTATION DATE OF CONSULTATION: HISTORY OF PRESENT ILLNESS: This patient has a history of ischemic cardiomyopathy. His ejection fraction of 20%. He has had problem with recurrent ventricular tachycardia. He was admitted with heart failure. He had low blood pressure. He was seen recently by me in the hospital for dysphagia. He was at that time in the ICU. He was felt not to be a candidate for endoscopy. Esophagram showed a mild stricture at the EG junction, a hiatal hernia. He was placed on Protonix, and was able to swallow better. He states that with soft diet, he is able to get things down even such as pork. He had some constipation and impaction. He said he had a dark stool at the [facility]. He is on Eliquis. MEDICATIONS: His medications now include Eliquis b.i.d., Protonix, Zantac at bedtime, MiraLAX powder, and mexiletine. LABORATORY DATA: Hemoglobin here was 11.8, fell to 9.8, and has been stable since then. He has an elevated BUN and creatinine. PHYSICAL EXAMINATION: VITAL SIGNS: His blood pressure is now 112/70, he looks comfortable. He is on oxygen. GENERAL: He is conversant. Does not appear dyspneic at all. It should be noted on his last upper GI series, he had dysmotility in the esophagus with temporary lodging of the tablet at the mid chest. This tablet did not reach his stomach as he had some respiratory distress during the procedure. IMPRESSION: 1. The patient with melenic stool, but already on acid reduction therapy. Hemoglobin has been stable. 2. Dysphagia which is controlled with diet. It is possible that a dilatation could help some of the issue, may be motility issue. PLAN: At this point with his severe comorbid conditions, I believe that observation would be the best course. Suggest maintaining on a soft diet. Also, starting lactulose on a daily basis to prevent impaction. If swallowing becomes more of an issue than he could be dilated with cardiac clearance; however, his Eliquis will need to be held for 48 to 72 hours at least. MG/MODL Mata Consultation Report [address] [place]. [address] NAME: PETER MENDOZA : 38 STATUS : ADM IN PAT#: [id number] AGE: 76 ADM/REG DATE : 10/03/16 MR#: [id number] REPORT SERV DATE: 10/05/16 DICTATED BY: MATA VILLAFANA DATE: 10/05/16 REPORT STATUS : Draft TRANSCRIBED BY: MODL DATE: 10/05/16 Gilbert Villafana / [id number] CC: MD Socorro Yates M.D. Steven Stubblefield, M.D., F.A.C.C.
--- NOTE | ~2016-10-03 | IDS ---
Interim Discharge Summary [facility] [address] [place]. [address] NAME: PETER MENDOZA : 38 STATUS : ADM IN PAT#: [id number] AGE: 76 ADM/REG DATE : 10/03/16 MR#: [id number] REPORT SERV DATE: 10/07/16 DICTATED BY: KATHY DIAZ DATE: 10/07/16 REPORT STATUS : Draft TRANSCRIBED BY: MODL DATE: 10/07/16 ADMISSION DATE: 10/03/2016 DISCHARGE DATE: CONSULTANTS: Dr. Morteza Lloyd, Nephrology; Dr. Rossy Crespo, Critical Care; Dr. Mata Bear, GI; and Dr. Blake Calero, Cardiology. PROBLEM LIST: 1. Acute on chronic systolic ischemic congestive heart failure with previous bypass and current ejection fraction of 20%. 2. Status post acute kidney injury superimposed on stage 4 chronic kidney disease. 3. Status post hyperkalemia. 4. Status post cardiogenic shock requiring dobutamine in the Intensive Care. 5. Allergic-like reaction with itchy hands when he was treated with Zosyn. 6. Pseudomonas, urinary tract infection. 7. History of previous ventricular tachycardia, which failed ablation and he has a BiV-ICD in place. 8. Atrial fibrillation, on amiodarone and Eliquis. 9. Previous gastrointestinal bleed. 10.Diabetes mellitus type 2 with A1c of 5.6%. 11.Obesity with body mass index of 43.3. 12.Obstructive sleep apnea with the BiPAP support. 13.Major depression with history of anxiety and panic. 14.History of previous TIA. 15.Suspected esophageal stricture. 16.Chronic elevation of the left hemidiaphragm. 17.Anemia of chronic disease and iron deficiency anemia. HISTORY: This patient is now hospitalized for the fourth time in the last six months for congestive heart failure. He presented to our emergency room on 10/03/2016 with hypoxia, pulmonary congestion, hypotension, and acute kidney injury. He had been on his BiPAP pretty much day and night for about five days. He was admitted to the intensive care where he initially was treated with dobutamine. He did improve to where he was able to move out of the intensive care. The patient has stage 4 chronic kidney disease and on presentation to the ER his potassium was 6.3, and his creatinine was 2.34, both have improved, and currently his creatinine is at 1.84, which is his baseline. The patient's cardiogenic shock was treated with dobutamine and it has improved and resolved but he does get dyspneic with very minimal exertion. He is still using his BiPAP for significant portion of the daytime. He did feel some better today. He has gotten up to the chair yesterday and up to the chair today. When he came, a catheter was placed and the first urine specimen grew out Pseudomonas fluorescens. The patient is on antibiotic coverage for that, that was present at the time Interim Discharge Summary [id number] [place]. [address] NAME: PETER MENDOZA : 36 STATUS : ADM IN [facility]#: [id number] AGE: 76 ADM/REG DATE : 10/03/16 MR#: [id number] REPORT SERV DATE: 10/07/16 DICTATED BY: KATHY DIAZ DATE: 10/07/16 REPORT STATUS : Draft TRANSCRIBED BY: LOUIE DATE: 10/07/16 of presentation. During his most recent hospitalization, he experienced difficulty with swallowing and was seen by Dr. Bear of GI. He had at that time a barium swallow on 08/22/2016 which did reveal moderate esophageal dysmotility with a 13 mm barium tablet lodged at the level of the parag temporarily before it finally moved on into the esophagus. He has some chronic eventration of the left hemidiaphragm with the fundus of the stomach residing more cephalad in position than the GE junction. He has not been felt to be a candidate to go through conscious sedation and EGD, so GI is just recommending mechanical soft diet, chopped meats or ground meats with gravy, thin liquids, and Protonix. That seems to be helping the patient at this point in time. The patient does have anemia that is chronic, also has evidence for iron deficiency, so we are giving him some Ferrlecit at this point in time. I have to watch for constipation as he has had that at times quite severe over the last few months. His bowels are currently moving quite effectively. He was residing at a rehab going through therapy, and he hopes to gain strength enough to go back to that same rehab. He is still currently a full code despite his severe multiple diseases. Cardiology today is Dr. Calero covering for Dr. Robledo, and he has placed the patient on hydralazine and Imdur to try to see if it will help with his heart failure symptoms. JOANNE/MODL Kathy Diaz M.D. / [id number] CC: Gilbert Mclean M.D.
--- NOTE | ~2016-10-03 | CN ---
Consultation Report [facility] [address] [place]. [address] NAME: PETER MENDOZA : 38 STATUS : ADM IN PAT#: [id number] AGE: 76 ADM/REG DATE : 10/03/16 MR#: [id number] REPORT SERV DATE: 10/05/16 DICTATED BY: KANG PICKETT DATE: 10/05/16 REPORT STATUS : Draft TRANSCRIBED BY: MODL DATE: 10/05/16 CARDIOVASCULAR CONSULTATION DATE OF CONSULTATION: 10/04/2016 HISTORY OF PRESENT ILLNESS: Mr. Peter Mendoza is a 76-year-old gentleman with past medical history significant for ischemic cardiomyopathy. He is status post previous bypass. Most recent catheterization in October of 2014, revealed occlusion of his RODRIGUEZ. He does have a patent SVG to the OM, a patent SVG to the diagonal, and a patent [place] right coronary artery. His ejection fraction is known to be approximately 20%. He is status post AICD by Dr. Lyn. The patient presented with gradual worsening of shortness of breath and lower extremity edema. He does report that he has had some intermittent chest heaviness but states that is not unusual for him. REVIEW OF SYSTEMS: The patient reports stable orthopnea. He has rare paroxysmal nocturnal dyspnea which has accelerated over the last week. He denies any dietary indiscretion. He denies any genitourinary or neurologic complaints. He does report that he sometimes has difficulty swallowing and that he has had a previous GI bleed. PAST MEDICAL HISTORY: As noted above significant for ischemic cardiomyopathy. Status post CABG. Status post AICD. The patient has a history of atrial fibrillation and obstructive sleep apnea. He has had previous GI bleed. He has diabetes mellitus type 2. FAMILY HISTORY: Extensive for cardiovascular disease. SOCIAL HISTORY: The patient has not smoked in many years. PHYSICAL EXAMINATION: VITAL SIGNS: Blood pressure 86/48, pulse 72, respiratory rate 16; patient on 7.5 mcg of dobutamine. NECK: No jugular venous distention, hepatojugular reflux, or carotid bruits. CARDIOVASCULAR EXAM: Normal rate with regular rhythm. PMI is inferiorly laterally displaced. There is a 1/6 holosystolic murmur. LUNGS: Reveal decreased breath sounds in the bases. ABDOMEN: Benign. EXTREMITIES: Exam reveals 2+ pitting edema. EKG shows a paced rhythm. Troponin is negative x2. Consultation Report [facility] [address] [place]. [address] NAME: PETER MENDOZA : 36 STATUS : ADM IN PAT#: [id number] AGE: 76 ADM/REG DATE : 10/03/16 MR#: [id number] REPORT SERV DATE: 10/05/16 DICTATED BY: KANG PICKETT DATE: 10/05/16 REPORT STATUS : Draft TRANSCRIBED BY: MODL DATE: 10/05/16 BNP is elevated at 2142. ASSESSMENT: 1. Heart failure with reduced ejection fraction, acute on chronic. 2. Coronary artery disease. 3. Status post AICD. 4. Chronic kidney disease. 5. Probable UTI. 6. Obstructive sleep apnea. 7. Diabetes mellitus type 2. 8. Atrial fibrillation-paroxysmal. PLAN: 1. Continue dobutamine as needed for pressure support and cardiac output. 2. We will plan to medically manage this patient if at all possible as he is a poor catheterization candidate. 3. I appreciate your consultation on this complex patient. Dr. Robledo and I will follow him closely with you. /LOUIE Kang Pickett M.D., [facility] / [id number] CC: Rossy Crespo MD
--- NOTE | ~2016-10-03 | DS ---
Discharge Summary [facility] [address] [place]. [address] NAME: PETER MENDOZA : 38 STATUS : DIS IN PAT#: [id number] AGE: 76 ADM/REG DATE : 10/03/16 MR#: [id number] REPORT SERV DATE: 10/12/16 DICTATED BY: ARMIN CHRIS DATE: 10/11/16 REPORT STATUS : Draft TRANSCRIBED BY: MODL DATE: 10/11/16 ADMISSION DATE: 10/03/2016 DISCHARGE DATE: 10/10/2016 REASON FOR ADMISSION: This is a 76-year-old male who came in with a chief complaint of shortness of breath. DISCHARGE DIAGNOSES: 1. Acute on chronic ischemic congestive heart failure with ejection fraction of 20%. 2. Status post acute kidney injury on chronic kidney disease stage IV. 3. Status post cardiogenic shock, requiring dobutamine and Intensive Care. 4. Allergic-like reaction to IV Zosyn. 5. Pseudomonas urinary tract infection. 6. History of ventricular tachycardia with biventricular implantable cardioverter defibrillator. 7. Atrial fibrillation, on amiodarone and Eliquis. 8. Diabetes type 2. A1c 5.6. 9. Obesity with body mass index of 43.3. 10.Obstructive sleep apnea with BiPAP at h.s. 11.Major depression with history of anxiety and panic disorder. 12.History of transient ischemic attack. 13.Suspected esophageal stricture. 14.Chronic elevation of left hemidiaphragm. 15.Anemia of chronic disease and iron deficiency anemia. HOSPITAL COURSE: Please see admission H and P and interim discharge summary from Dr. Jemal Diaz for full details on admission and hospital stay. 1. Acute on chronic systolic ischemic CHF with EF 20%. The patient's CHF exacerbation and cardiogenic shock which has required intensive care treatment with dobutamine, had resolved when I picked up the patient on 10/09/2016, the patient was awaiting rehab placement, and finally, the patient had bed come open and was sent to rehab on 10/10/2016. DISCHARGE CONDITION: Stable. DISCHARGE MEDICATIONS: 1. Eliquis 2.5 mg p.o. b.i.d. 2. NovoLog sliding scale insulin. 3. Protonix 40 mg p.o. daily. 4. Cymbalta 30 mg p.o. q.h.s. 5. Neurontin 200 mg p.o. b.i.d. 6. Potassium chloride 20 mEq p.o. b.i.d. 7. Torsemide 40 mg p.o. b.i.d. 8. Ranexa 500 mg p.o. b.i.d. 9. Colace 100 mg p.o. daily. 10.MiraLAX one packet daily. Discharge Summary [address] [address] NAME: PETER MENDOZA : 38 STATUS : DIS IN PAT#: [id number] AGE: 76 ADM/REG DATE : 10/03/16 MR#: [id number] REPORT SERV DATE: 10/12/16 DICTATED BY: ARMIN CHRIS DATE: 10/11/16 REPORT STATUS : Draft TRANSCRIBED BY: LOUIE DATE: 10/11/16 11.Vitamin D3 1000 units p.o. daily. 12.Vitamin B complex one tablet p.o. daily. 13.Benemid 500 mg p.o. b.i.d. 14.Guaifenesin 600 mg p.o. b.i.d. 15.Flomax 0.4 mg p.o. q.h.s. 16.Zetia 10 mg p.o. daily. 17.Pravachol 40 mg p.o. q.h.s. 18.Zantac 150 mg p.o. q.h.s. 19.BuSpar 7.5 mg p.o. b.i.d. 20.Coreg 12.5 mg p.o. b.i.d. 21.Ultram 50 mg p.o. q.4 hours p.r.n. DISCHARGE PLAN: The patient is discharged to rehab and follow up with his primary care, Dr. Rees, after rehab. DICTATED BY: YVETTE Corral/LOUIE Armin Chris APN / [id number] CC: Gilbert Wells M.D.
--- NOTE | ~2016-10-03 | CN ---
Consultation Report [facility] [address] [place]. [address] NAME: PETER MENDOZA : 38 STATUS : ADM IN PAT#: [id number] AGE: 76 ADM/REG DATE : 10/03/16 MR#: [id number] REPORT SERV DATE: 10/04/16 DICTATED BY: MORTEZA BREWSTER DATE: 10/03/16 REPORT STATUS : Draft TRANSCRIBED BY: MODL DATE: 10/03/16 NEPHROLOGY CONSULT DATE OF CONSULTATION: Mr. Mendoza is a 76-year-old with ischemic cardiomyopathy, ejection fraction 25%. Patient of Dr. Robledo's with CKD stage 4, creatinine 2.4; hypotension, recurrent, with a history of hypertension in the past; obstructive sleep apnea, on CPAP; paroxysmal atrial fibrillation, status post ablation and AICD; diabetes mellitus type 2, on insulin; chronic anemia; history of hypertension and hyperlipidemia; depression and anxiety; obesity; gout; and status post bilateral cataract surgery. SOCIAL HISTORY: No tobacco. No alcohol. FAMILY HISTORY: Positive for both parents dying of heart failure. Has an allergy to lisinopril, valsartan, levofloxacin, and Entresto. MEDICATIONS: Amiodarone, Eliquis, Zithromax, B complex vitamins, BuSpar, Coreg, Cefzil, vitamin D3, Colace, Cymbalta, Zetia, Lasix, Neurontin, Mucinex, NovoLog and Levemir, Zaroxolyn, Protonix, MiraLAX, Klor-Con, Pravachol, Benemid, Zantac, Ranexa, Flomax, Ultram, and mexiletine. REVIEW OF SYSTEMS: Progressive weakness, presents now with a several-week history of weakness and feeling worse, shortness of breath, and worsening edema. No fever or chills. The cough he is having is clear. No dysuria or genitourinary symptoms. PHYSICAL EXAMINATION: VITAL SIGNS: Blood pressure 118/59, heart rate 69, respirations 36 with 100% saturated on 2 L by nasal cannula. GENERAL: Alert and cooperative on dopamine and CPAP in the CCU. HEENT: On CPAP. LUNGS: Show good air movement bilaterally. CARDIOVASCULAR: Without rub. ABDOMEN: Obese, soft, benign. Bowel sounds are present. EXTREMITIES: 3+ edema bilaterally. NEUROLOGIC: Nonfocal. Recognized me and conversant. LABORATORY DATA: Lab work shows a blood gas of 7.45, pCO2 of 35, PO2 of 123 on 21% FiO2. Sodium 135, potassium 5.3, chloride 98, CO2 of 28 with a BUN of 66, creatinine 2.4 with a baseline creatinine of 2.0. Troponin 0.03. Beta natriuretic peptide 2142, higher than usual. White count 9.0, hemoglobin 11, hematocrit 35, platelet count 277,000. Urinalysis shows pyuria. ASSESSMENT: Consultation Report [facility] [address] [place]. [address] NAME: PETER MENDOZA : 38 STATUS : ADM IN PAT#: [id number] AGE: 76 ADM/REG DATE : 10/03/16 MR#: [id number] REPORT SERV DATE: 10/04/16 DICTATED BY: MORTEZA BREWSTER DATE: 10/03/16 REPORT STATUS : Draft TRANSCRIBED BY: MODL DATE: 10/03/16 1. Exacerbation of congestive heart failure with known ejection fraction less than 30. 2. Chronic kidney disease stage 3, now appears to be stage 4. I am not sure this is acute on chronic kidney failure or progression of kidney disease. 3. Urinary tract infection. We will culture. 4. Obstructive sleep apnea, on CPAP. 5. Dobutamine dependent at present. 6. See past medical history. PLAN: We will follow. Urine culture ordered. Seems to be doing better on dobutamine and CPAP, and we will reevaluate in a.m. IVANA/LOUIE Morteza Brewster M.D. / [id number] CC: MD Kang Yates M.D., F.A.C.C.
--- NOTE | ~2016-10-03 | HP ---
History And Physical [facility] [id number] [facility] [place]. [address] NAME: PETER MENDOZA : 38 STATUS : ADM IN PAT#: [id number] AGE: 76 ADM/REG DATE : 10/03/16 MR#: [id number] REPORT SERV DATE: 10/04/16 DICTATED BY: KATHY DIAZ DATE: 10/03/16 REPORT STATUS : Draft TRANSCRIBED BY: MODL DATE: 10/03/16 DATE OF ADMISSION: 10/03/2016 IDENTIFYING DATA: A 76-year-old white male whose PCP is Dr. Negrito Rees. CHIEF COMPLAINT: Shortness of breath. HISTORY OF PRESENT ILLNESS: This history of present illness is obtained by talking with the patient, a granddaughter, and a great granddaughter as well as talking with the ER physician and reviewing the [employer] and [employer]. The patient has known ischemic cardiomyopathy. He had bypass in 2006. He has an ejection fraction of approximately 20%. He has had problems with recurrent ventricular tachycardia. He had failed ablation in 03/2016, at that time, ended up with ventilator dependent respiratory failure. The patient has had admissions in April and then in August for congestive heart failure and was just released from this facility in August of this year and then was readmitted at [facility] and was just released there a few days ago and sent to [facility]. He has had several days of progressive chest pressure. He has had leg edema. He has been having to wear his BiPAP day and night for about five days. He states he is short of breath at rest and with any exertion. He came to the emergency room where he was found to have acute systolic on chronic congestive heart failure with acute kidney injury, low blood pressure with systolics in the 70s to 80s, diastolics in the 30s to 40s. We were asked to admit him. After talking to the ER physician and looking over the preliminary data, I suggested the patient go to the intensive care. However, the critical care specialists were tied up, so I continued to see the patient try to get him in the hospital though in the intensive care. REVIEW OF SYSTEMS: He states he has been having lots of constipation. He went seven days, now he has gone four days. He states that he had some black stool when he was at [facility] about a week or so ago, but not since that time that he knows of. He also has significant problems with dysphagia they got better transiently with Protonix, but now still bothers him. He has had dysuria for about a month. He has had a urinary hesitancy, and he has nocturia, although those are not new. He denies fever, cough, vomiting, or bright red blood per rectum. ALLERGIES: HE STATES HE IS ALLERGIC TO LISINOPRIL, VALSARTAN, LEVAQUIN, AND ENTRESTO. PAST MEDICAL HISTORY: He has a history of GI bleeds. He has had atrial fibrillation. He has had diabetes mellitus type 2. He has significant obesity. He has obstructive sleep apnea for which he was normally just using his BiPAP at night. He has stage 4 chronic kidney disease. He also has a history of anemia of chronic disease as well as major depression and generalized anxiety and panic episodes. He has had previous TIAs. He has a chronic elevation of his left hemidiaphragm. He has had previous gout, and he has had significant dysphagia, but was not felt to be a candidate for EGD because of his poor History And Physical [address] [address] NAME: PETER MENDOZA : 38 STATUS : ADM IN [facility]#: [id number] AGE: 76 ADM/REG DATE : 10/03/16 MR#: [id number] REPORT SERV DATE: 10/04/16 DICTATED BY: KATHY DIAZ DATE: 10/03/16 REPORT STATUS : Draft TRANSCRIBED BY: LOUIE DATE: 10/03/16 cardiac condition. On 08/22/2016, he had a barium swallow which showed moderate esophageal dysmotility with the leftward course of the esophagus at the level of the parag. A 13 mm barium tablet got lodged temporarily at that level then finally did pass. He has eventration of the left hemidiaphragm. The fundus of the stomach is residing more cephalad in the position then the GE junction. HOME MEDICATIONS: Amiodarone 400 mg b.i.d.; Eliquis 2.5 mg b.i.d.; azithromycin 250 mg daily, started 10/01/2016; Cefzil 250 mg b.i.d. started 10/01/2016; super B complex once a day; BuSpar 5 mg with lunch, 7.5 mg with breakfast and supper; Coreg 12.5 mg b.i.d.; vitamin D 1000 units daily; Colace 100 mg daily; Cymbalta 30 mg at bedtime; Zetia 10 mg daily; Lasix 40 mg twice a day; gabapentin 200 mg twice a day; Mucinex 600 mg b.i.d.; NovoLog sliding scale; Levemir 10 units twice a day; Zaroxolyn 5 mg every Saturday and ; Protonix 40 mg daily; MiraLAX powder a packet daily; KCl 20 mEq b.i.d.; Pravachol 40 mg at bedtime; Benemid 500 mg b.i.d.; Zantac 150 mg at bedtime; Ranexa 500 mg twice a day; Flomax 0.4 mg at bedtime; tramadol 50 mg q.4 hours p.r.n. pain; mexiletine 150 mg t.i.d. SURGICAL HISTORY: He has had ICD; bilateral shoulder, bilateral knees, ankle surgery, coronary artery bypass, cataract surgery, hips. SOCIAL HISTORY: He is . His is in [facility] after he had knee surgery. He has to have two people help him stand. He can turn. He uses a walker, but mostly uses a power wheelchair. He quit smoking in 1970. Denies any significant alcohol. He is currently at [facility]. FAMILY HISTORY: He states both parents had congestive heart failure. Siblings with heart failure. DIAGNOSTIC DATA: Chest x-ray. He has a single portable film, reveals pacer ICD in his left chest, cardiomegaly. He has bibasilar pulmonary interstitial edema, bilateral shoulder replacement, this is per my interpretation. EKG done in the ER today at 1331 hours reveals AV paced rhythm, biventricular pacer. Arterial blood gas was done in the emergency room, it is labeled as being on room air, but was actually on oxygen. He had BiPAP, but I cannot find out from his respiratory how much of each. A pH 7.45, pCO2 of 35, pO2 of 123, bicarbonate 23.8. Sodium 131, potassium 6.3, chloride 96, CO2 is 29, BUN 69, creatinine 2.34, and by comparison, his creatinine was 1.79 on 09/20/2016, glucose 142, calcium 8.9, magnesium 3.1. Troponin 0.03. B-natriuretic peptide is 2142.5. White count is 9, hemoglobin 11, platelets are 277,000. ProTime is 20.2. INR 1.7. PTT is 39.4. PHYSICAL EXAMINATION: VITAL SIGNS: Temp 98, pulse 70, respirations 25, blood pressure when I saw him was initially 80/42 and subsequently up to 112/70, O2 saturation is currently 100% on 3 L with BiPAP. GENERAL: Well-developed, obese, older male who appears short of breath with BiPAP on. HEENT: Head is atraumatic. Pupils are equal, round, and reactive to light. Extraocular motions are intact. No scleral icterus noted. Ear canals and TMs unremarkable with normal History And Physical [address] [address] NAME: PETER MENDOZA : 38 STATUS : ADM IN [facility]#: [id number] AGE: 76 ADM/REG DATE : 10/03/16 MR#: [id number] REPORT SERV DATE: 10/04/16 DICTATED BY: KATHY DIAZ DATE: 10/03/16 REPORT STATUS : Draft TRANSCRIBED BY: LOUIE DATE: 10/03/16 hearing bilaterally. Nose, noninflamed externally. Septum midline. Nares patent. Mouth, I can not really see much because of the BiPAP mask. NECK: Obese and supple. No lymph node or thyroid enlargement. The carotids have fair pulses. No bruits. LUNGS: Decreased breath sounds in both bases. Shallow inspiratory size. Increased respiratory effort with BiPAP on. HEART: Regular without gallop, click, murmur, or rub. ABDOMEN: Obese. Bowel sounds positive. Soft. He states it is tender diffusely to mild palpation, but only very mildly such and he states it has been that way for at least a week or more. EXTREMITIES: Reveal poor pulses in his feet. He has 2+ pedal and calf edema. He has no cyanosis. He has bruising in all four extremities. No actively inflamed skin or joints. NEUROLOGIC: He is awake and alert. He is slow to answer questions, but he did answer on subject. His motor strength is 1/5 in all four extremities. No Babinski. No clonus noted. Cranial nerves II through XII are grossly normal. ASSESSMENT: 1. Acute on chronic systolic congestive heart failure with an ejection fraction known to be 20%, now with respiratory discomfort requiring continuous BiPAP for five days and a very high B-natriuretic peptide. 2. Acute kidney injury superimposed on stage 4 chronic kidney disease currently with hyperkalemia, probably representing cardiorenal syndrome and his dosing of potassium. 3. Hypotension in the emergency room. 4. See past medical history. PLAN: 1. Admit to the intensive care. 2. BiPAP with followup blood gas with a series of cardiac troponins. I will ask his human service coordinator and his supervisor maintenance to see him. He also asked that if his GI, Dr. Bear, be consulted because of his dysphagia. 3. We will repeat a basic metabolic profile at 8 o'clock this evening, and we will follow up his blood gas this evening. We will also get a renal panel and a CBC in the morning. A Batista catheter was placed by the ER. We will check a urinalysis. I will give him some doses of albumin along with the Lasix. 4. We will allow his Cardiology team and Renal team to consider whether he would be a candidate for inotropic support. 5. I asked him about his code status. He insists he still wants to be full code. We will check stool Hemoccult. RSG/MODL Kathy Diaz M.D. / [id number] History And Physical [address] [address] NAME: PETER MENDOZA : 38 STATUS : ADM IN PAT#: [id number] AGE: 76 ADM/REG DATE : 10/03/16 MR#: [id number] REPORT SERV DATE: 10/04/16 DICTATED BY: KATHY DIAZ DATE: 10/03/16 REPORT STATUS : Draft TRANSCRIBED BY: MODL DATE: 10/03/16 CC: MD Dr. Negrito Yates M.D., F.A.C.C. Gilbert Horta M.D. Mata Bear M.D.
[2016-10-03 15:48] LABS: BASOPHILS 0.1 %; BASOPHILS ABSOLUTE 0.01 10/3/uL (0.0-0.16); EOSINOPHILS 0.1 %; EOSINOPHILS ABSOLUTE 0.01 10/3/uL (0.0-0.53); HEMATOCRIT 35.7 % (40.0-51.0); IMMATURE GRANULOCYTES 0.3 %; IMMATURE GRANULOCYTES ABSOLUTE 0.03 10/3/uL (0.0-0.11); LYMPHOCYTES 8.1 %; LYMPHOCYTES ABSOLUTE 0.73 10/3/uL (0.67-4.30); MEAN CORPUS HGB CONC 30.8 g/dL (32.0-36.0); MEAN CORPUSCULAR HEMOGLOB 27.3 pg (26.0-34.0); MEAN CORPUSCULAR VOLUME 88.6 fL (80-100); MONOCYTES 9.4 %; MONOCYTES ABSOLUTE 0.85 10/3/uL (0.21-1.20); PLATELET COUNT 277 10/3/uL (150-400); RBC DISTRIBUTION WIDTH 17.1 % (12.0-16.0); RED CELL COUNT 4.03 10/6/uL (4.7-6.1)
[2016-10-03 15:49] LABS: ER CBC TAT 0 Hrs 05 Mins; MANUAL DIFF NO %
[2016-10-03 15:56] LABS: INTERNATIONAL NORMAL RATI 1.7 UNITS (-); PARTIAL THROMBO TIME 39.4 SEC (22.5-37.2); PROTIME (NOT ORD) 20.2 SEC (12.0-14.5)
[2016-10-03 16:06] LABS: BUN (BLOOD UREA NITROGEN) 64 MG/DL (6-23); CALCIUM, SERUM 8.9 MG/DL (8.5-10.4); CHEST PAIN PROFILE TAT 0 Hrs 22 Mins; CHLORIDE, SERUM 96 MMOL/L (96-112); SODIUM, SERUM 131 MMOL/L (135-148); TROPONIN I 0.03 NG/ML (<0.05)
[2016-10-03 16:07] LABS: CO2 (CARBON DIOXIDE) 29 MMOL/L (24-34); CREATININE 2.34 MG/DL (0.70-1.30); GFR AFRICAN AMERICAN 30 ML/MIN (>=60); GFR NON AFRICAN AMERICAN 26 ML/MIN (>=60); GLUCOSE, SERUM 142 MG/DL (60-99); POTASSIUM, SERUM 6.3 MMOL/L (3.5-5.3)
[2016-10-03] MEDS ORDERED: NOVOLOG SC (17:23)
[2016-10-03] MEDS ORDERED: ELIQUIS 2.5 MG2.5 MG PO (17:23)
[2016-10-03] MEDS ORDERED: LEVEMIR SC (17:24)
[2016-10-03] MEDS ORDERED: PROTONIX PO (17:25)
[2016-10-03] MEDS ORDERED: MEXITIL 150 MG150 MG PO (17:25)
[2016-10-03] MEDS ORDERED: Z5 PO (17:26)
[2016-10-03] MEDS ORDERED: PACERONE400 MG PO (17:26)
[2016-10-03] MEDS ORDERED: KLOR-CON M2020 MEQ PO (17:27)
[2016-10-03] MEDS ORDERED: CYMBALTA30 PO (17:27)
[2016-10-03] MEDS ORDERED: NEUR100 PO (17:27)
[2016-10-03] MEDS ORDERED: RAN500 PO (17:28)
[2016-10-03] MEDS ORDERED: L40 PO (17:28)
[2016-10-03] MEDS ORDERED: DSS PO (17:28)
[2016-10-03] MEDS ORDERED: MIRALAX POWDER1 PKT PO (17:28)
[2016-10-03] MEDS ORDERED: VITAMIN D31000 UNIT PO (17:29)
[2016-10-03] MEDS ORDERED: BENEMID500 PO (17:29)
[2016-10-03] MEDS ORDERED: SUPER B COMP PO (17:29)
[2016-10-03] MEDS ORDERED: MUCINEX600 MG PO (17:30)
[2016-10-03] MEDS ORDERED: FLOMAX4 PO (17:30)
[2016-10-03] MEDS ORDERED: ZETIA PO (17:31)
[2016-10-03] MEDS ORDERED: PRAVACHOL40 MG PO (17:31)
[2016-10-03] MEDS ORDERED: ZANTAC150 MG PO (17:31)
[2016-10-03] MEDS ORDERED: ZITH250 PO (17:32)
[2016-10-03] MEDS ORDERED: CEFZIL250 MG PO (17:32)
[2016-10-03] MEDS ORDERED: COREG12 PO (17:33)
[2016-10-03] MEDS ORDERED: BUSPAR5 PO (17:33)
[2016-10-03] MEDS ORDERED: BUSPIRONE7.5 MG PO (17:33)
[2016-10-03] MEDS ORDERED: ULTRAM50 PO (17:34)
[2016-10-03 17:49] LABS: BE (BASE EXCESS) 0.2 MEQ/L (0 +/- 2.5); CARBOXYHEMOGLOBIN 1.4 % (0-3); HCO3 (ACTUAL BICARBONATE) 23.8 MEQ/L (23-27); HEMOBLOGIN CONTENT 11.2 G/DL (14-18); INSTRUMENT SERIAL # 8087; METHEMOGLOBIN 0.1 % (0-3); O2 CONTENT 15.5 VOL% (18-24); PCO2 (CO2 TENSION) 35 MMHG (35-45); PO2 (O2 TENSION) 123 MMHG (79-93); SAMPLE Arterial; pH 7.45 (7.37-7.43)
[2016-10-03 21:23] LABS: BUN (BLOOD UREA NITROGEN) 66 MG/DL (6-23); CALCIUM, SERUM 8.9 MG/DL (8.5-10.4); CHLORIDE, SERUM 98 MMOL/L (96-112); CO2 (CARBON DIOXIDE) 28 MMOL/L (24-34); DIRECT BILIRUBIN 0.2 MG/DL (0.0-0.4); GFR AFRICAN AMERICAN 29 ML/MIN (>=60); GFR NON AFRICAN AMERICAN 25 ML/MIN (>=60); INDIRECT BILIRUBIN(NOT ORDER) 0.5 MG/DL (0.1-0.9); POTASSIUM, SERUM 5.3 MMOL/L (3.5-5.3); SGOT(AST) 63 U/L (5-40); SGPT(ALT) 58 U/L (5-65); SODIUM, SERUM 135 MMOL/L (135-148); TOTAL BILIRUBIN 0.7 MG/DL (0-1.2); TOTAL PROTEIN 7.7 G/DL (6.0-8.5); TROPONIN I 0.03 NG/ML (<0.05)
[2016-10-03 21:24] LABS: ALBUMIN 3.3 G/DL (3.5-5.0); ALKALINE PHOSPHATASE 109 U/L (45-117); GLUCOSE, SERUM 91 MG/DL (60-99)
[2016-10-03 22:22] LABS: PROCALCITONIN 0.08 ng/mL (<0.5)
[2016-10-03 22:28] LABS: ASCORBIC ACID (UR NOT ORDER) NEG (NEG); BILIRUBIN, URINE NEGATIVE (NEG); KETONE, URINE NEGATIVE (NEG); LEUKOCYTE ESTERASE(NOT OR LARGE (NEG)
[2016-10-03 22:31] LABS: WBC (NOT ORDERED) (RFLEX) > 182 (0-5)
[2016-10-03 23:03] LABS: ALLENS TEST Pos; BE (BASE EXCESS) 2.2 MEQ/L (0 +/- 2.5); BIPAP 16/5 cm.H2O; CARBOXYHEMOGLOBIN 0.8 % (0-3); HCO3 (ACTUAL BICARBONATE) 26.4 MEQ/L (23-27); HEMOBLOGIN CONTENT 10.7 G/DL (14-18); INSTRUMENT SERIAL # 35151; METHEMOGLOBIN 0.4 % (0-3); O2 CONTENT 15.3 VOL% (18-24); OPERATOR ID 35785; PCO2 (CO2 TENSION) 40 MMHG (35-45); PO2 (O2 TENSION) 219 MMHG (79-93); SAMPLE Arterial; pH 7.44 (7.37-7.43)
[2016-10-04 03:41] LABS: ALLENS TEST Pos; BE (BASE EXCESS) 3.5 MEQ/L (0 +/- 2.5); BIPAP 16/5 cm.H2O; CARBOXYHEMOGLOBIN 0.5 % (0-3); HCO3 (ACTUAL BICARBONATE) 27.9 MEQ/L (23-27); HEMOBLOGIN CONTENT 10.1 G/DL (14-18); INSTRUMENT SERIAL # 35151; METHEMOGLOBIN 0.4 % (0-3); O2 CONTENT 13.8 VOL% (18-24); OPERATOR ID 23712; PCO2 (CO2 TENSION) 42 MMHG (35-45); PO2 (O2 TENSION) 92 MMHG (79-93); SAMPLE Arterial; pH 7.44 (7.37-7.43)
[2016-10-04 04:18] LABS: BASOPHILS 0.2 %; BASOPHILS ABSOLUTE 0.01 10/3/uL (0.0-0.16); EOSINOPHILS 0.6 %; EOSINOPHILS ABSOLUTE 0.04 10/3/uL (0.0-0.53); HEMOGLOBIN 9.7 g/dL (13.6-17.8); IMMATURE GRANULOCYTES 0.3 %; IMMATURE GRANULOCYTES ABSOLUTE 0.02 10/3/uL (0.0-0.11); LYMPHOCYTES 10.5 %; LYMPHOCYTES ABSOLUTE 0.69 10/3/uL (0.67-4.30); MEAN CORPUS HGB CONC 31.4 g/dL (32.0-36.0); MEAN CORPUSCULAR HEMOGLOB 27.6 pg (26.0-34.0); MEAN PLATELET VOLUME 9.8 fL (9.2-13.0); MONOCYTES 16.1 %; MONOCYTES ABSOLUTE 1.06 10/3/uL (0.21-1.20); NEUTROPHILS 72.3 %; NEUTROPHILS ABSOLUTE 4.76 10/3/uL (2.02-8.40); PLATELET COUNT 218 10/3/uL (150-400); RBC DISTRIBUTION WIDTH 17.1 % (12.0-16.0); RED CELL COUNT 3.51 10/6/uL (4.7-6.1); WHITE BLOOD CELLS 6.6 10/3/uL (4.5-10.5)
[2016-10-04 04:27] LABS: HEMATOCRIT 30.9 % (40.0-51.0); MANUAL DIFF NO %
[2016-10-04 04:30] LABS: BUN (BLOOD UREA NITROGEN) 64 MG/DL (6-23); CALCIUM, SERUM 8.4 MG/DL (8.5-10.4); CHLORIDE, SERUM 99 MMOL/L (96-112); CO2 (CARBON DIOXIDE) 30 MMOL/L (24-34); CREATININE 2.28 MG/DL (0.70-1.30); GFR AFRICAN AMERICAN 31 ML/MIN (>=60); GFR NON AFRICAN AMERICAN 26 ML/MIN (>=60); GLUCOSE, SERUM 87 MG/DL (60-99); PHOSPHORUS, SERUM 3.5 MG/DL (2.5-4.5); SODIUM, SERUM 137 MMOL/L (135-148)
[2016-10-04 04:33] LABS: POTASSIUM, SERUM 3.9 MMOL/L (3.5-5.3)
[2016-10-04 14:20] LABS: HEMATOCRIT 30.2 % (40.0-51.0); HEMOGLOBIN 9.4 g/dL (13.6-17.8)
[2016-10-05 02:09] LABS: BASOPHILS 0.2 %; BASOPHILS ABSOLUTE 0.01 10/3/uL (0.0-0.16); EOSINOPHILS 0 %; HEMATOCRIT 31.7 % (40.0-51.0); HEMOGLOBIN 9.8 g/dL (13.6-17.8); IMMATURE GRANULOCYTES 0.2 %; IMMATURE GRANULOCYTES ABSOLUTE 0.01 10/3/uL (0.0-0.11); LYMPHOCYTES 5.4 %; LYMPHOCYTES ABSOLUTE 0.34 10/3/uL (0.67-4.30); MEAN CORPUS HGB CONC 30.9 g/dL (32.0-36.0); MEAN CORPUSCULAR HEMOGLOB 27.1 pg (26.0-34.0); MEAN CORPUSCULAR VOLUME 87.8 fL (80-100); MEAN PLATELET VOLUME 9.9 fL (9.2-13.0); MONOCYTES 15.4 %; MONOCYTES ABSOLUTE 0.96 10/3/uL (0.21-1.20); NEUTROPHILS 78.8 %; NEUTROPHILS ABSOLUTE 4.92 10/3/uL (2.02-8.40); PLATELET COUNT 224 10/3/uL (150-400); RBC DISTRIBUTION WIDTH 16.9 % (12.0-16.0); RED CELL COUNT 3.61 10/6/uL (4.7-6.1); WHITE BLOOD CELLS 6.2 10/3/uL (4.5-10.5)
[2016-10-05 02:10] LABS: MANUAL DIFF NO %
[2016-10-05 02:22] LABS: CALCIUM, SERUM 8.5 MG/DL (8.5-10.4); CHLORIDE, SERUM 96 MMOL/L (96-112); CO2 (CARBON DIOXIDE) 30 MMOL/L (24-34); CREATININE 2.13 MG/DL (0.70-1.30); GFR AFRICAN AMERICAN 33 ML/MIN (>=60); GFR NON AFRICAN AMERICAN 29 ML/MIN (>=60); PHOSPHORUS, SERUM 3.6 MG/DL (2.5-4.5); SODIUM, SERUM 134 MMOL/L (135-148)
[2016-10-05 02:23] LABS: BUN (BLOOD UREA NITROGEN) 59 MG/DL (6-23); GLUCOSE, SERUM 153 MG/DL (60-99)
[2016-10-05 10:07] LABS: HEMATOCRIT 32.4 % (40.0-51.0)
[2016-10-06 01:23] LABS: BASOPHILS 0.1 %; BASOPHILS ABSOLUTE 0.01 10/3/uL (0.0-0.16); EOSINOPHILS 0.8 %; EOSINOPHILS ABSOLUTE 0.06 10/3/uL (0.0-0.53); HEMATOCRIT 32.2 % (40.0-51.0); HEMOGLOBIN 9.8 g/dL (13.6-17.8); IMMATURE GRANULOCYTES 0.3 %; IMMATURE GRANULOCYTES ABSOLUTE 0.02 10/3/uL (0.0-0.11); LYMPHOCYTES 14.5 %; LYMPHOCYTES ABSOLUTE 1.07 10/3/uL (0.67-4.30); MEAN CORPUS HGB CONC 30.4 g/dL (32.0-36.0); MEAN CORPUSCULAR HEMOGLOB 26.7 pg (26.0-34.0); MEAN CORPUSCULAR VOLUME 87.7 fL (80-100); MEAN PLATELET VOLUME 9.9 fL (9.2-13.0); MONOCYTES 6.1 %; MONOCYTES ABSOLUTE 0.45 10/3/uL (0.21-1.20); NEUTROPHILS 78.2 %; NEUTROPHILS ABSOLUTE 5.78 10/3/uL (2.02-8.40); PLATELET COUNT 224 10/3/uL (150-400); RBC DISTRIBUTION WIDTH 16.9 % (12.0-16.0); RED CELL COUNT 3.67 10/6/uL (4.7-6.1); WHITE BLOOD CELLS 7.4 10/3/uL (4.5-10.5)
[2016-10-06 01:24] LABS: MANUAL DIFF NO %
[2016-10-06 01:34] LABS: BUN (BLOOD UREA NITROGEN) 57 MG/DL (6-23); CALCIUM, SERUM 8.2 MG/DL (8.5-10.4); CHLORIDE, SERUM 97 MMOL/L (96-112); CO2 (CARBON DIOXIDE) 31 MMOL/L (24-34); CREATININE 2.01 MG/DL (0.70-1.30); GFR AFRICAN AMERICAN 36 ML/MIN (>=60); GFR NON AFRICAN AMERICAN 31 ML/MIN (>=60); GLUCOSE, SERUM 142 MG/DL (60-99); POTASSIUM, SERUM 4.1 MMOL/L (3.5-5.3); SODIUM, SERUM 134 MMOL/L (135-148)
[2016-10-06 12:57] LABS: % IRON SAT 12 % (20-50); FERRITIN 61 NG/ML (26-388); IRON BINDING CAPACITY 278 MCG/DL (250-450); IRON, SERUM 32 MCG/DL (35-150)
[2016-10-06 16:54] LABS: ASCORBIC ACID (UR NOT ORDER) NEG (NEG); BILIRUBIN, URINE NEGATIVE (NEG); KETONE, URINE NEGATIVE (NEG); LEUKOCYTE ESTERASE(NOT OR LARGE (NEG); WBC (NOT ORDERED) (RFLEX) 41 (0-5)
[2016-10-07 00:46] LABS: BASOPHILS 0.2 %; BASOPHILS ABSOLUTE 0.01 10/3/uL (0.0-0.16); EOSINOPHILS 1.1 %; EOSINOPHILS ABSOLUTE 0.07 10/3/uL (0.0-0.53); HEMATOCRIT 32.2 % (40.0-51.0); HEMOGLOBIN 10.1 g/dL (13.6-17.8); IMMATURE GRANULOCYTES 0.5 %; IMMATURE GRANULOCYTES ABSOLUTE 0.03 10/3/uL (0.0-0.11); LYMPHOCYTES 9.5 %; LYMPHOCYTES ABSOLUTE 0.62 10/3/uL (0.67-4.30); MEAN CORPUS HGB CONC 31.4 g/dL (32.0-36.0); MEAN CORPUSCULAR HEMOGLOB 27.4 pg (26.0-34.0); MEAN CORPUSCULAR VOLUME 87.5 fL (80-100); MEAN PLATELET VOLUME 9.7 fL (9.2-13.0); MONOCYTES 17.5 %; MONOCYTES ABSOLUTE 1.14 10/3/uL (0.21-1.20); NEUTROPHILS 71.2 %; NEUTROPHILS ABSOLUTE 4.64 10/3/uL (2.02-8.40); PLATELET COUNT 210 10/3/uL (150-400); RBC DISTRIBUTION WIDTH 16.8 % (12.0-16.0); RED CELL COUNT 3.68 10/6/uL (4.7-6.1); WHITE BLOOD CELLS 6.5 10/3/uL (4.5-10.5)
[2016-10-07 00:47] LABS: MANUAL DIFF NO %
[2016-10-07 00:59] LABS: ALBUMIN 2.8 G/DL (3.5-5.0); CALCIUM, SERUM 8.4 MG/DL (8.5-10.4); CHLORIDE, SERUM 98 MMOL/L (96-112); CO2 (CARBON DIOXIDE) 30 MMOL/L (24-34); CREATININE 1.84 MG/DL (0.70-1.30); GFR AFRICAN AMERICAN 40 ML/MIN (>=60); GFR NON AFRICAN AMERICAN 34 ML/MIN (>=60); GLUCOSE, SERUM 122 MG/DL (60-99); POTASSIUM, SERUM 4.1 MMOL/L (3.5-5.3); SODIUM, SERUM 135 MMOL/L (135-148)
[2016-10-07 01:00] LABS: BUN (BLOOD UREA NITROGEN) 51 MG/DL (6-23); PHOSPHORUS, SERUM 2.2 MG/DL (2.5-4.5)
[2016-10-08 04:50] LABS: HEMATOCRIT 31.2 % (40.0-51.0); HEMOGLOBIN 9.8 g/dL (13.6-17.8)
[2016-10-08 04:53] LABS: BUN (BLOOD UREA NITROGEN) 53 MG/DL (6-23); CALCIUM, SERUM 8.6 MG/DL (8.5-10.4); CHLORIDE, SERUM 97 MMOL/L (96-112); CO2 (CARBON DIOXIDE) 26 MMOL/L (24-34); CREATININE 1.94 MG/DL (0.70-1.30); GFR AFRICAN AMERICAN 37 ML/MIN (>=60); GFR NON AFRICAN AMERICAN 32 ML/MIN (>=60); GLUCOSE, SERUM 139 MG/DL (60-99); POTASSIUM, SERUM 4.2 MMOL/L (3.5-5.3); SODIUM, SERUM 131 MMOL/L (135-148)
[2016-10-09 04:15] LABS: HEMATOCRIT 32.5 % (40.0-51.0); MEAN CORPUS HGB CONC 30.8 g/dL (32.0-36.0); MEAN CORPUSCULAR HEMOGLOB 26.8 pg (26.0-34.0); MEAN CORPUSCULAR VOLUME 87.1 fL (80-100); PLATELET COUNT 182 10/3/uL (150-400); RBC DISTRIBUTION WIDTH 17.1 % (12.0-16.0); RED CELL COUNT 3.73 10/6/uL (4.7-6.1); WHITE BLOOD CELLS 5.7 10/3/uL (4.5-10.5)
[2016-10-09 04:18] LABS: MANUAL DIFF YES %
[2016-10-09 04:26] LABS: ALBUMIN 2.6 G/DL (3.5-5.0); BUN (BLOOD UREA NITROGEN) 53 MG/DL (6-23); CALCIUM, SERUM 8.1 MG/DL (8.5-10.4); CHLORIDE, SERUM 99 MMOL/L (96-112); CO2 (CARBON DIOXIDE) 27 MMOL/L (24-34); CREATININE 1.93 MG/DL (0.70-1.30); GFR AFRICAN AMERICAN 38 ML/MIN (>=60); GFR NON AFRICAN AMERICAN 32 ML/MIN (>=60); GLUCOSE, SERUM 137 MG/DL (60-99); PHOSPHORUS, SERUM 2.2 MG/DL (2.5-4.5); POTASSIUM, SERUM 4.2 MMOL/L (3.5-5.3); SODIUM, SERUM 134 MMOL/L (135-148)
[2016-10-09 04:41] LABS: ANISOCYTOSIS 1+ (5-10/OIF) (0-5/OIF); EOSINOPHILS 1 %; EOSINOPHILS ABSOLUTE (CALC) 0.06 10/3/uL (0.0-0.53); HYPOCHROMIA 1+ (3-10/OIF) (0-2/OIF); IMMATURE GRANS ABSOLUTE (CALC) 0.06 10/3/uL (0.0-0.11); LYMPHOCYTES 4 %; LYMPHOCYTES ABSOLUTE (CALC) 0.23 10/3/uL (0.67-4.30); METAMYELOCYTES 1 %; MONOCYTES 10 %; MONOCYTES ABSOLUTE (CALC) 0.57 10/3/uL (0.21-1.20); NEUTROPHILS ABSOLUTE (CALC) 4.79 10/3/uL (2.02-8.40); PLATELET ESTIMATE ADQ (ADEQUATE); SEGMENTED NEUTROPHIL (0) 84 %; TOTAL NUCLEATED CELLS 100
[2016-10-10 04:59] LABS: HEMOGLOBIN 9.9 g/dL (13.6-17.8)
[2016-10-11] MEDS ORDERED: APRES25 PO (20:38)
[2016-10-11] MEDS ORDERED: PACERONE400 MG PO (20:39)
[2016-10-11] MEDS ORDERED: DEMA20 PO (20:40)
[2016-10-11] MEDS ORDERED: FERROUS SULF325 M1 PO (20:41)
[2016-10-11] MEDS ORDERED: IMDUR30 PO (20:42)
[2016-10-11] MEDS ORDERED: GENERLAC PO (20:42)
[2016-10-11] MEDS ORDERED: D.O.S.100 MG PO (20:49)
[2017-01-13] MEDS ORDERED: PACERONE400 MG PO (03:26)
[2017-01-13] MEDS ORDERED: IMDUR30 PO (03:27)
[2017-01-13] MEDS ORDERED: MEXITIL 150 MG150 MG PO (03:28)
[2017-01-13] MEDS ORDERED: BENEMID500 PO (03:29)
[2017-01-13] MEDS ORDERED: FLOMAX4 PO (03:29)
[2017-01-13] MEDS ORDERED: COREG12 PO (03:34)
[2017-01-13] MEDS ORDERED: PRAVACHOL40 MG PO (03:34)
[2017-01-13] MEDS ORDERED: ZETIA PO (03:35)
[2017-01-13] MEDS ORDERED: CYMBALTA30 PO (03:35)
[2017-01-13] MEDS ORDERED: ELIQUIS 2.5 MG2.5 MG PO (03:36)
[2017-01-13] MEDS ORDERED: MICRO-K10 MEQ PO (03:37)
[2017-01-13] MEDS ORDERED: NEUR100 PO (03:38)
[2017-01-13] MEDS ORDERED: PROTONIX PO (03:39)
[2017-01-13] MEDS ORDERED: DEMA100 PO (03:40)
[2017-01-13] MEDS ORDERED: ZANTAC150 MG PO (03:43)
[2017-01-13] MEDS ORDERED: Z5 PO (03:43)
[2017-01-13] MEDS ORDERED: ULTRACET PO (03:45)
[2017-01-13] MEDS ORDERED: VITAMIN D1000 UNI1 PO (03:46)
[2017-01-13] MEDS ORDERED: LEVEMIR SC (03:48)
[2017-01-14] MEDS ORDERED: VITAMIN D1000 UNI1 PO (20:48)
[2017-01-14] MEDS ORDERED: ELIQUIS 2.5 MG2.5 MG PO (20:48)
[2017-01-14] MEDS ORDERED: COREG12 PO (20:48)
[2017-01-14] MEDS ORDERED: PACERONE400 MG PO (20:48)
[2017-01-14] MEDS ORDERED: CYMBALTA30 PO (20:49)
[2017-01-14] MEDS ORDERED: AMOXIL500 MG PO (20:49)
[2017-01-14] MEDS ORDERED: NEUR100 PO (20:49)
[2017-01-14] MEDS ORDERED: ZETIA PO (20:49)
[2017-01-14] MEDS ORDERED: APRES25 PO (20:50)
[2017-01-14] MEDS ORDERED: AMITIZA24 PO (20:50)
[2017-01-14] MEDS ORDERED: LEVEMFLXPN SC (20:51)
[2017-01-14] MEDS ORDERED: IMDUR30 PO (20:52)
[2017-01-14] MEDS ORDERED: Z5 PO (20:53)
[2017-01-14] MEDS ORDERED: MEXITIL 150 MG150 MG PO (20:53)
[2017-01-14] MEDS ORDERED: KDUR10 PO (20:54)
[2017-01-14] MEDS ORDERED: PRAVACHOL40 MG PO (20:54)
[2017-01-14] MEDS ORDERED: PROTONIX PO (20:54)
[2017-01-14] MEDS ORDERED: BENEMID500 PO (20:55)
[2017-01-14] MEDS ORDERED: ZANTAC 150 PO (20:55)
[2017-01-14] MEDS ORDERED: NOVOLOG SC (20:55)
[2017-01-14] MEDS ORDERED: ULTRACET PO (20:56)
[2017-01-14] MEDS ORDERED: FLOMAX4 PO (20:56)
[2017-01-14] MEDS ORDERED: DEMA100 PO (20:56)
[2017-01-14] MEDS ORDERED: T PO (20:58)
[2017-01-14] MEDS ORDERED: DSS PO (20:59)
[2017-01-16] MEDS ORDERED: SENTAB PO (10:28)
[2017-01-16] MEDS ORDERED: MIRALAX POWDER1 PKT PO (10:28)
[2017-01-16] MEDS ORDERED: Z5 PO (10:30)
== END 2016-10-10 14:01 | DRG 291 ==
LOC: ER 15:03 → CCU 18:42 → 6NO 10-05 13:24
PROVIDERS: Emergency Medicine; Hospitalist; Internal Medicine Critical Care Medicine; Internal Medicine Gastroenterology; Internal Medicine Pulmonary Disease; Registered Nurse
PROC: 5A09457 Assistance with Respiratory Ventilation, 24-96 Consecutive Hours, Continuous Positive Airway Pressure (ICD-10-PCS; principal; 2016-10-03)
PROC: 4B02XTZ Measurement of Cardiac Defibrillator, External Approach (ICD-10-PCS; 2016-10-03)
PROC: 02HV33Z Insertion of Infusion Device into Superior Vena Cava, Percutaneous Approach (ICD-10-PCS; 2016-10-04)
PROC: 4A02X4A Measurement of Cardiac Electrical Activity, Guidance, External Approach (ICD-10-PCS; 2016-10-04)
DX: I13.0 Hypertensive heart and chronic kidney disease with heart failure and stage 1 through stage 4 chronic kidney disease, or unspecified chronic kidney disease (principal); I50.23 Acute on chronic systolic (congestive) heart failure; R57.0 Cardiogenic shock; I47.2 Ventricular tachycardia; N17.9 Acute kidney failure, unspecified; N18.4 Chronic kidney disease, stage 4 (severe); E11.22 Type 2 diabetes mellitus with diabetic chronic kidney disease; Z99.81 Dependence on supplemental oxygen; Z68.41 Body mass index [BMI] 40.0-44.9, adult; K22.2 Esophageal obstruction; N39.0 Urinary tract infection, site not specified; R13.10 Dysphagia, unspecified; E87.5 Hyperkalemia; I25.5 Ischemic cardiomyopathy; G47.33 Obstructive sleep apnea (adult) (pediatric); I48.0 Paroxysmal atrial fibrillation; M10.9 Gout, unspecified; E78.5 Hyperlipidemia, unspecified; F32.9 Major depressive disorder, single episode, unspecified; D50.9 Iron deficiency anemia, unspecified; F41.9 Anxiety disorder, unspecified; E66.9 Obesity, unspecified; L29.8 Other pruritus; T36.0X5A Adverse effect of penicillins, initial encounter; J98.6 Disorders of diaphragm; B96.5 Pseudomonas (aeruginosa) (mallei) (pseudomallei) as the cause of diseases classified elsewhere; D63.8 Anemia in other chronic diseases classified elsewhere; K59.00 Constipation, unspecified; Z79.4 Long term (current) use of insulin; Z88.8 Allergy status to other drugs, medicaments and biological substances; Z95.1 Presence of aortocoronary bypass graft; Z82.49 Family history of ischemic heart disease and other diseases of the circulatory system; Z98.890 Other specified postprocedural states; Z95.810 Presence of automatic (implantable) cardiac defibrillator; Z86.73 Personal history of transient ischemic attack (TIA), and cerebral infarction without residual deficits; Z87.891 Personal history of nicotine dependence
CPT/HCPCS: 36569; 36600; 71010; 71020; 80048; 80069; 80076; 81001; 82272; 82533; 82607; 82728; 82805; 82962; 83036; 83540; 83550; 83735; 83880; 84100; 84145; 84484; 85014; 85018; 85025; 85610; 85730; 87040; 87077; 87086; 87186; 87641; 93005; 94660; 96374; 96375; 97162-GP; 97166-GO; 97530-GP; 99285; A9270-GY; C1751; G8978-CL-GP; G8979-CL-GP; G8980-CL-GP; G8987-CK-GO; G8988-CJ-GO; J0692; J1200; J2405; J2543; J2916; J2930; J3370; P9045; P9047